=== PATIENT | male | born 1935 | race Caucasian/White ===

== ENCOUNTER 2016-02-20 19:16 | Inpatient (IN) | payer MEDICARE, OTHER ==
--- NOTE | 2016-02-20 19:47 | DIRPT ---
CLINICAL DATA: weakness EXAM: PORTABLE CHEST 1 VIEW COMPARISON: 09/08/15 FINDINGS: Bilateral lower lobe consolidation and pleural effusions, small on the right and small to moderate on the left. Mildly increased opacity right base, with moderately increased opacity at left lung base. IMPRESSION: Increased bilateral lower lobe consolidation, left worse than right, with increased bilateral effusions, again more so on the left. Electronically Signed By: Andrew Arevalo M.D. On: 02/20/2016 19:44
[2016-02-20 19:52] LABS: MPV 7.1 fL (7.4-10.4)
[2016-02-20 19:59] LABS: LEUKOCYTES/URINE NEG (NEGATIVE); NITRITE/URINE NEG (NEGATIVE); URINE OCCULT BLOOD NEG (NEG/TRACE); WBC/URINE 0-2 (0-2)
[2016-02-20 20:02] LABS: BLOOD UREA NITROGEN 33 MG/DL (9-20); CALC CORRECTED 10.1 MG/DL (8.4-10.2); CALCIUM 8.8 MG/DL (8.4-10.2); CALCULATED OSMOLALITY 284 MOs/Kg (270-290); CHLORIDE 105 mEq/L (98-107); GLUCOSE 261 MG/DL (70-99); SODIUM LEVEL 139 mEq/L (137-146); TOTAL PROTEIN 6.1 G/DL (6.3-8.2)
[2016-02-20 20:05] LABS: PARTIAL THROMB. TIME 28.9 SEC (22-35); PT-INR 1.3
[2016-02-20] MEDS ORDERED: PIPERACILLIN AND TAZOBACTAM 3.375 GM in D5W 100 ML IV ONE (21:19)
[2016-02-20] MEDS ORDERED: Levofloxacin 750 mg/150 ml D5W 750 MG/150 ML RTU IV ONE (21:19)
--- NOTE | 2016-02-20 22:19 | HISTPHYS ---
- Chief Complaint weakness, altered mental status - History of Present Illness PRIMARY CARE PROVIDER: Possibly Stephania Silva, but patient is not sure WEB SEARCH EVALUATOR: Dr. Pedro HPI: The patient is a 81 yo man with moderate to severe dementia, chronic bronchiectasis, who presents with weakness and altered mental status, along with knee pain. The patient is not clear why he is here, and there is no family present. History is obtained from the patient, the triage report, the emergency department staff, and the medical record. Apparently the patient's called EMS because her was confused and weak; she also reported his left knee was hurting more than normal and that he was not as active because of the pain. Regarding the weakness: Onset: he is not sure but he thinks it started today. Duration: intermittent. Location: generalized but more in the legs and symmetric. Radiation: none. Character: fatigue and also general weakness. Alleviated by: Nothing. Exacerbated by: Nothing. Associated Symptoms: At first he said he did not have any shortness of breath, but then later admitted he had a minimal amount of shortness of breath. Occasional cough. No wheezing. Confusion worse than his baseline (per report, but patient denies). No fever or chills. No chest pain or heart racing. He does not remember having any weight gain or leg swelling. Has left knee pain and swelling. Treatments: none at home except usual medications. Regarding left knee pain and swelling: Onset: he is not sure but he thinks it started today. Duration: intermittent. Location: left knee. Radiation: none. Character: moderate pain. Sharp. Alleviated by: Nothing. Exacerbated by: Nothing. Associated Symptoms: No redness or warmth. No fever or chills. Treatments: none at home except usual medications. - Medical History Cardiac History: Reports: Hypertension, Congestive Heart Failure (Mild. ECHO 2015: EF 55-60%. DIASTOLIC.) Respiratory History: Reports: Other (is actually BRONCHIECTASIS rather than COPD ) Musculoskeletal History: Reports: Arthritis Neurological History: Reports: Dementia (moderate to severe) Psychological History: Denies: Depression OTHER HISTORY: ECHOCARDIOGRAM, 07/09/2015: FINDINGS ------- Procedure:2D images, m-mode, color and spectral Doppler were obtained and reviewed. ECG rhythm:Sinus rhythm. Study quality:This was a technically adequate study. Left Ventricle:The left ventricular size is normal. Left ventricular wall thickness is upper normal. Overall left ventricular systolic function is normal with, an EF between 55 - 60 %. No regional wall motion abnormalities were noted. Their is impaired relaxation (Grade I diastolic dysfunction) Right Ventricle:The right ventricle is normal in size and function. Left Atrium:Left atrium is normal size by volume. Right Atrium:The right atrium is normal in size and function. Septum normal. Aortic Valve:The aortic valve is trileaflet, and appears structurally normal. No aortic stenosis or regurgitation. Mitral Valve:Normal appearing mitral valve. There is trace mitral regurgitation. Inflow suggests impaired relaxation. Tricuspid Valve:The tricuspid valve appears structurally normal. Mild tricuspid regurgitation present. Right ventricular systolic pressure is normal at < 35 mmHg. Pulmonic Valve:The pulmonic valve is normal. Trace/mild (physiologic) pulmonic regurgitation. Aorta:The aortic root, ascending aorta and aortic arch appear normal. IVC:Normal inferior vena cava with normal inspiratory collapse. Pericardium:There is no pericardial effusion. CONCLUSIONS 1. low normal left ventricular systolic function, with Grade I diastolic dysfunction (impaired relaxation) 2. normal right heart size/function, mild TR, normal pulmonary artery pressure suggested 3. no valvular heart disease or shunt.. EF between 55 - 60 % - Surgical History Reports: Tonsillectomy/Adnoidectomy (AND RIGHT EAR SURGERY) - Medictions/Allergies Allergies cefprozil [From Cefzil] Allergy (Verified 09/08/15 16:51) Nausea/Vomiting Current Medication List: Reviewed Home Medications Aspirin [Aspirin, Chewable] 81 mg PO DAILYWM #30 tablet 05/27/13 Metoprolol Tartrate [Lopressor] 50 mg PO BID #60 tablet 05/27/13 Esomeprazole Magnesium [Nexium] 20 mg PO DAILY 07/09/15 Loratadine [Claritin] 10 mg PO DAILY 07/09/15 Furosemide [Lasix] 40 mg PO DAILY #60 tab 07/21/15 Guaifenesin [Mucinex] 1,200 mg PO BID #20 tbmp.12hr 07/21/15 L.acidoph/B.animalis/B.longum [Florajen3 Capsule] 460 mg PO DAILY #60 capsule Magnesium Oxide [Mag-Ox] 400 mg PO BID #60 tablet 07/21/15 Mirtazapine [Remeron] 30 mg PO HS #60 tab 07/21/15 Potassium Chloride 40 meq PO DAILY #60 tablet.er 07/21/15 - Family History Reports: Stroke (Mother), Cardiac Disorders (Father: [place]), Other (Father: LUPUS) - Social History Travel Outside of [place] in the Last 3 Months?: No Lives: with Spouse Smoking Status: Former smoker (Smoked briefly in his teens, quit in his early 20s.) Social History: Denies: Alcohol Use, Substance Use Disorder - Review of Systems GENERAL: No Fever, chills, or diaphoresis. Positive for fatigue/malaise. HEENT: No ear pain or discharge. No nasal discharge or bleeding. No throat pain or swelling. No eye pain or eye redness. RESPIRATORY: No wheezing. Mild shortness of breath. Occasional cough. CARDIOVASCULAR: No chest pain or palpitations. GI: No abdominal pain, nausea, vomiting, diarrhea, constipation, or bloody stool. NEUROLOGICAL: No headache or focal weakness. Generalized weakness especially in the legs, symmetric. INTEGUMENT: no rashes, itching, or lesions. LYMPHATIC SYSTEM: no lymph node swelling or pain. MUSCULOSKELETAL: Left knee pain and swelling. Otherwise, no new pain or joint swelling. GENITOURINARY: No dysuria or hematuria. ENDOCRINE: No polyuria or polydipsia. HEME: No chronic anemia, bleeding, or easy bruising. - Physical Exam Vital Signs: Initial Vitals Temperature 98.4 F 02/20/16 19:25 Pulse Rate 88 02/20/16 19:25 Respiratory Rate 28 H 02/20/16 19:25 Blood Pressure 108/53 L 02/20/16 19:25 Pulse Oxygen Saturation 92 02/20/16 19:25 Vital Signs - 24 hr 02/20/16 19:25 Temperature 98.4 F Pulse Rate 88 Respiratory 28 H Rate Blood Pressure 108/53 L Pulse Oxygen 92 Saturation Weight: 68.5 kg Height: 5'5" BMI: 25.1 - Other Exam Other Exam Findings: GENERAL: Ill-appearing, well nourished, in acute distress. HEENT: Normocephalic, atraumatic; pupils equal and round. Nares patent, without discharge or bleeding. No oropharyngeal lesions or erythema. Mucous membranes are dry. NECK: is supple, no masses, trachea midline. RESPIRATORY: Clear to auscultation bilaterally. Chest wall movements are symmetric. No use of accessory muscles to breathe. Tachypnea, intermittent. Decreased breath sounds in bases bilaterally. No wheezing. No rhonchi. Slight rales. CARDIOVASCULAR: Normal S1, S2. Regular. No murmurs, rubs, or gallops. PMI non- displaced. Carotids: no carotid bruits. No bradycardia or tachycardia. DP pulses 2+ bilaterally. Minimal JVD. GI: soft, nontender, non-distended, normal active bowel sounds. No hepatosplenomegaly. INTEGUMENT: Clean, dry, and intact. No rashes. MUSCULOSKELETAL: Moving all extremities. No cyanosis. No clubbing. Edema: trace lower extremity edema bilaterally. L knee: tenderness on anterior, medial, and lateral aspect; joint swelling noted but no erythema. NEUROLOGICAL: Cranial nerves 2-12 grossly intact. Motor 4/5 throughout upper extremities and 4-/5 in lower extremities, symmetric. Reflexes: 2+ bilaterally. Babinski: toes downgoing bilaterally. Intact Finger to nose. Sensory grossly intact to light touch. Intact rapid alternating movements bilaterally. No pronator drift. PSYCHIATRIC: Oriented to person. Normal and appropriate affect. Confused. LYMPHATIC: No cervical lymphadenopathy. No supraclavicular lymphadenopathy. - Lab Results Laboratory Results - last 24 hr 02/20/16 02/20/16 02/20/16 19:44 19:44 19:44 WBC 15.4 H RBC 3.03 L Hgb 8.7 L Hct 27.2 L MCV 90 MCH 28.6 MCHC 31.9 L RDW 16.4 H Plt Count 222 MPV 7.1 L PT 13.1 H INR 1.3 APTT 28.9 Sodium 139 Potassium 4.9 Chloride 105 Carbon Dioxide 26 Anion Gap 13 BUN 33 H Creatinine 0.90 Estimated GFR (MDRD) > 60 Glucose 261 H Calculated Osmolality 284 Lactic Acid Calcium 8.8 Corrected Calcium 10.1 Magnesium 2.20 Total Bilirubin 0.7 AST 18 ALT 29 Alkaline Phosphatase 97 Troponin I < 0.01 Ggp-U-Iegvybtjroy Pept 3430 H Total Protein 6.1 L Albumin 2.7 L Urine Color Urine Clarity Urine pH Ur Specific [place] Urine Protein Urine Glucose (UA) Urine Ketones Urine Occult Blood Urine Nitrite Urine Bilirubin Urine Urobilinogen Ur Leukocyte Esterase Urine RBC Urine WBC Ur Epithelial Cells Urine Bacteria Hyaline Casts Urine Mucus 02/20/16 02/20/16 19:48 21:43 WBC RBC Hgb Hct MCV MCH MCHC RDW Plt Count MPV PT INR APTT Sodium Potassium Chloride Carbon Dioxide Anion Gap BUN Creatinine Estimated GFR (MDRD) Glucose Calculated Osmolality Lactic Acid 2.1 Calcium Corrected Calcium Magnesium Total Bilirubin AST ALT Alkaline Phosphatase Troponin I Vhe-M-Iwcmtwboleb Pept Total Protein Albumin Urine Color Dark yellow Urine Clarity Clear Urine pH 6.0 Ur Specific [place] 1.015 Urine Protein 2+ H Urine Glucose (UA) 1+ Urine Ketones Neg Urine Occult Blood Neg Urine Nitrite Neg Urine Bilirubin Neg Urine Urobilinogen 8 H Ur Leukocyte Esterase Neg Urine RBC 5-10 H Urine WBC 0-2 Ur Epithelial Cells Occ Urine Bacteria Few Hyaline Casts 0-2 Urine Mucus Occ - Diagnostic Findings DIAGNOSTIC DATA: EK bpm. Normal sinus rhythm. Nonspecific ST abnormality. Significant artifact. T-wave inversion in lead V2. Reviewed EKG personally. IMAGING: Chest x-ray, viewed personally: EXAM: PORTABLE CHEST 1 VIEW COMPARISON: 09/08/15 FINDINGS: Bilateral lower lobe consolidation and pleural effusions, small on the right and small to moderate on the left. Mildly increased opacity right base, with moderately increased opacity at left lung base. IMPRESSION: Increased bilateral lower lobe consolidation, left worse than right, with increased bilateral effusions, again more so on the left. - Assessment (1) Diastolic CHF, acute on chronic I50.33 - ACUTE ON CHRONIC DIASTOLIC (CONGESTIVE) HEART FAILURE Acute Present on Admission: Yes The patient has both acute and chronic heart failure. Heart failure type: diastolic. Echocardiogram results from past: 07/09/15: EF 55-60%, diastolic dysfunction. Plan: Admit to PCU with telemetry. CHF order set. Diet of 2 g Na. Daily weights with strict I/O's. No IVF unless patient is NPO. As tolerated, give beta alvarez, SAMIA inhibitor or ARB. Give Lasix IV scheduled. Replace potassium. Monitor heart rate, blood pressure, and respiratory status carefully. Provide support with oxygen as needed. Provide teaching regarding heart failure, 2g Na diet, daily weights, signs of acute heart failure. (2) Hypoxia R09.02 - HYPOXEMIA Acute Present on Admission: Yes Patient has dyspnea and is not improving. Patient's PO2 is low. Plan: Place patient on oxygen by nasal cannula and increase as needed. May need BiPAP if no improvement. Monitor oxygen saturation levels and keep O2 sats greater than 92%. (3) Bronchiectasis J47.9 - BRONCHIECTASIS, UNCOMPLICATED Acute Present on Admission: Yes Qualifiers: Bronchiectasis type: with acute lower respiratory infection Qualified Code( s): J47.0 - Bronchiectasis with acute lower respiratory infection Has chronic bronchiectasis, may have acute worsening. Plan: Cultures ordered. IV methylprednisolone. Trial of nebs. 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 (4) Bursitis, prepatellar, left M70.42 - PREPATELLAR BURSITIS, LEFT KNEE Acute Present on Admission: Yes No erythema of knee on admission. Fluid drained in the emergency department and sent for studies. Plan: Follow results. PRN pain medication. Further treatment depending on course. (5) Bacterial pneumonia J15.9 - UNSPECIFIED BACTERIAL PNEUMONIA Acute Present on Admission: Yes Chest x-ray suggestive of consolidation, which may be due to infection. Plan: Cultures ordered. Treat with IV Levaquin, due to allergy to a cephalosporin. (6) Pleural effusion J90 - PLEURAL EFFUSION, NOT ELSEWHERE CLASSIFIED Acute Likely due to diastolic CHF. Plan: IV Lasix. Monitor. (7) Dementia F03.90 - UNSPECIFIED DEMENTIA WITHOUT BEHAVIORAL DISTURBANCE Acute Present on Admission: Yes Chronic issue. May have increased confusion, which could be multifactorial. Unsure of his baseline. Plan: Follow up with primary care for treatment. Monitor neuro status. Treat acute diagnoses. Case Care Discussed with: Patient, Nursing Staff Total Time: 70 min
--- NOTE | 2016-02-20 22:28 | EDPRACDOC ---
- General Information Chief Complaint: Generalized Weakness Stated Complaint: WEAKNESS Time Seen by Provider: 02/20/16 19:18 Information Source: Patient Mode Of Arrival: Ambulance Home Medications: Home Medications Aspirin [Aspirin, Chewable] 81 mg PO DAILYWM #30 tablet 05/27/13 Metoprolol Tartrate [Lopressor] 50 mg PO BID #60 tablet 05/27/13 Esomeprazole Magnesium [Nexium] 20 mg PO DAILY 07/09/15 Loratadine [Claritin] 10 mg PO DAILY 07/09/15 Furosemide [Lasix] 40 mg PO DAILY #60 tab 07/21/15 Guaifenesin [Mucinex] 1,200 mg PO BID #20 tbmp.12hr 07/21/15 L.acidoph/B.animalis/B.longum [Florajen3 Capsule] 460 mg PO DAILY #60 capsule Magnesium Oxide [Mag-Ox] 400 mg PO BID #60 tablet 07/21/15 Mirtazapine [Remeron] 30 mg PO HS #60 tab 07/21/15 Potassium Chloride 40 meq PO DAILY #60 tablet.er 07/21/15 Allergies/Adverse Reactions: Allergies Allergy/AdvReac Type Severity Reaction Status Date / Time cefprozil [From Cefzil] Allergy Nausea/Vomi Verified 09/08/15 16:51 ting - 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 ALSO PAIN SWELLING LEFT KNEE, BUT HE STATES THIS COMES AND GOES FREQUENTLY. ED Past Medical History - History Reviewed Yes Nurses notes reviewed and agree except as marked - Patient Medical History Cardiac History: Reports: Hypertension Respiratory History: Reports: COPD, Pneumonia (With associated scarring of lungs from recent infections), Other (is actually BRONCHIECTASIS rather than COPD) GI/ History: Reports: Urinary Tract Infection (As stated above with polyuria and hesitancy specifically denies any burning) Musculoskeletal History: Reports: Arthritis, Rheumatoid Arthritis Psychological History: Denies: Depression, Alcoholism, Substance Use Disorder Systemic History: Denies: Cancer Surgical History: Reports: Tonsillectomy/Adnoidectomy - Family Medical History Reports: Stroke. Denies: Hypertension, Diabetes, Cancer, Cardiac Disorders - Social Medical History Smoking Status: Never smoker Social History: Denies: Alcohol Use, Substance Use Disorder ETOH: None Substance Abuse: None Lives With: Family Lives In: Home EDM Review of Systems - Review of Systems ROS Negative Except as Marked: Yes All systems reviewed and were negative except as marked - Physical Exam Constitutional: No apparent distress, Alert (Awake), Cachectic Oriented to: Time, Person, Place Last recorded Vital Signs: Last Vital Signs Temp 98.4 F 02/20/16 19:25 Pulse 78 02/20/16 22:05 Resp 22 02/20/16 22:05 BP 96/52 L 02/20/16 22:05 Pulse Ox 94 02/20/16 22:05 Oxygen Pulse Oxygen Saturation 94 O2 Device Room Air Oxygen Flow Rate Fraction of Inspired Oxygen ( FIO2) - HEENT Head: Normal ( normocephalic) Eye Exam: Normal (PERRL, EOMI, Sclera white) Oropharynx: Normal (Pharynx:Moist without exudate,Gums-no swelling) Tympanic Membrane: Normal ENT EAC: Normal TMJ: Normal Nose: No Symptoms Reported (septum midline) Neck: Normal (FROM, trachea at midline) - Respiratory/Cardiovascular Respiratory: Diminished, Rales (FEW). negative: Tachypnea Cardiovascular: Normal (RRR without murmur, gallop or rub) - GI Auscultation: Normal (NABS) Palpation: Normal (Soft,No rebound or guarding, non distended) Tenderness: Non tender Aparicio's Sign: Negative - Musculoskeletal Back: Normal (Non-Tender) Extremities: Normal (Normal tone, Pulses 2+ No cyanosis or edema, FROM), Other ( LEFT KNEE PRE-PATELLA EFFUSION, NO ERYTHEMA WARMTH OR INDURATION. NO TTP. KNEE FROM.) - Integumentary Skin: Normal, Warm, Dry Lymphatics: Normal (no adenopathy) - Neurologic Memory Impaired: Normal Motor Function: Normal (Normal tone, Pulses 2+ No cyanosis or edema, FROM) Cranial Nerve: Normal (CN II-X11 intact sensation, strength 5/5) Cerebellar: Normal Mood Description: Normal Perception: Normal NIH Stroke Scale Re-evaluation 1 Level of Consciousness: Alert LOC- Question: Answers Both Correctly LOC Commands: Both Task Correctly Best Gaze: Normal Visual: No Visual Loss Facial Palsy: Normal Movement Motor Arm LEFT: No Drift Motor Arm RIGHT: No Drift Motor Leg LEFT: No Drift Motor Leg RIGHT: No Drift Limb Ataxia: Absent Sensory: Normal Best Language: No Aphasia Dysarthria: Normal Extinction and Inattention: No Abnormality (Neglect) Score: 0out of42 ED Procedures - Arthrocentesis Informed of risks, benefits and alternatives described: Yes Informed Consent Signed: Verbal Indication: Diagnostic Evaluation Prep: Chlorhexadine Prep Equipment used during procedure: Sterile Gloves Needle/Catheter was inserted into: Knee (LEFT PREPATELLA BURSA - MEDIAL APPROACH ) Removed: Cloudy fluid, Yellow fluid Amount (ml): 20 Joint Injected with: Nothing 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 - Results 02/20/16 19:44 02/20/16 19:44 WBC 15.4 xk/uL (3.8-10.8) H 02/20/16 19:44 RBC 3.03 xM/uL (4.70-6.10) L 02/20/16 19:44 Hgb 8.7 g/dL (14.0-18.0) L 02/20/16 19:44 Hct 27.2 % (42-52) L 02/20/16 19:44 MCV 90 fL (80-94) 02/20/16 19:44 MCH 28.6 pg (27-32) 02/20/16 19:44 MCHC 31.9 g/dl (33-36) L 02/20/16 19:44 RDW 16.4 % (11.5-14.5) H 02/20/16 19:44 Plt Count 222 xk/uL (130-400) 02/20/16 19:44 MPV 7.1 fL (7.4-10.4) L 02/20/16 19:44 PT 13.1 SEC (9.2-11.2) H 02/20/16 19:44 INR 1.3 02/20/16 19:44 APTT 28.9 SEC (22-35) 02/20/16 19:44 Sodium 139 mEq/L (137-146) 02/20/16 19:44 Potassium 4.9 mEq/L (3.5-5.1) 02/20/16 19:44 Chloride 105 mEq/L (98-107) 02/20/16 19:44 Carbon Dioxide 26 mMOL/L (22-33) 02/20/16 19:44 Anion Gap 13 mEq/L (8-16) 02/20/16 19:44 BUN 33 MG/DL (9-20) H 02/20/16 19:44 Creatinine 0.90 MG/DL (0.66-1.25) 02/20/16 19:44 Estimated GFR (MDRD) > 60 mL/min (>=60) 02/20/16 19:44 Glucose 261 MG/DL (70-99) H 02/20/16 19:44 Calculated Osmolality 284 MOs/Kg (270-290) 02/20/16 19:44 Lactic Acid 2.1 mEq/L (0.7-2.1) 02/20/16 21:43 Calcium 8.8 MG/DL (8.4-10.2) 02/20/16 19:44 Corrected Calcium 10.1 MG/DL (8.4-10.2) 02/20/16 19:44 Magnesium 2.20 MG/DL (1.6-2.3) 02/20/16 19:44 Total Bilirubin 0.7 MG/DL (0.2-1.3) 02/20/16 19:44 AST 18 IU/L (17-59) 02/20/16 19:44 ALT 29 IU/L (21-72) 02/20/16 19:44 Alkaline Phosphatase 97 IU/L (50-160) 02/20/16 19:44 Troponin I < 0.01 ng/mL (<.04) 02/20/16 19:44 Flz-W-Wybwxpyhryi Pept 3430 pg/mL (0-1800) H 02/20/16 19:44 Total Protein 6.1 G/DL (6.3-8.2) L 02/20/16 19:44 Albumin 2.7 G/DL (3.5-5.0) L 02/20/16 19:44 Urine Color Dark yellow 02/20/16 19:48 Urine Clarity Clear 02/20/16 19:48 Urine pH 6.0 (5.0-8.0) 02/20/16 19:48 Ur Specific [place] 1.015 (1.003-1.035) 02/20/16 19:48 Urine Protein 2+ (NEG/TRACE) H 02/20/16 19:48 Urine Glucose (UA) 1+ (NEGATIVE) 02/20/16 19:48 Urine Ketones Neg (NEGATIVE) 02/20/16 19:48 Urine Occult Blood Neg (NEG/TRACE) 02/20/16 19:48 Urine Nitrite Neg (NEGATIVE) 02/20/16 19:48 Urine Bilirubin Neg (NEGATIVE) 02/20/16 19:48 Urine Urobilinogen 8 MG/DL (0-1) H 02/20/16 19:48 Ur Leukocyte Esterase Neg (NEGATIVE) 02/20/16 19:48 Urine RBC 5-10 (0-2) H 02/20/16 19:48 Urine WBC 0-2 (0-2) 02/20/16 19:48 Ur Epithelial Cells Occ 02/20/16 19:48 Urine Bacteria Few (NEG/FEW) 02/20/16 19:48 Hyaline Casts 0-2 (0-2) 02/20/16 19:48 Urine Mucus Occ (NEG/OCC) 02/20/16 19:48 Lab Results 02/20/16 02/20/16 02/20/16 21:43 19:48 19:44 WBC RBC Hgb Hct MCV MCH MCHC RDW Plt Count MPV PT 13.1 H INR 1.3 APTT 28.9 Sodium Potassium Chloride Carbon Dioxide Anion Gap BUN Creatinine Estimated GFR (MDRD) Glucose Calculated Osmolality Lactic Acid 2.1 Calcium Corrected Calcium Magnesium Total Bilirubin AST ALT Alkaline Phosphatase Troponin I Jnc-C-Zqorgrjqrgl Pept Total Protein Albumin Urine Color Dark yellow Urine Clarity Clear Urine pH 6.0 Ur Specific [place] 1.015 Urine Protein 2+ H Urine Glucose (UA) 1+ Urine Ketones Neg Urine Occult Blood Neg Urine Nitrite Neg Urine Bilirubin Neg Urine Urobilinogen 8 H Ur Leukocyte Esterase Neg Urine RBC 5-10 H Urine WBC 0-2 Ur Epithelial Cells Occ Urine Bacteria Few Hyaline Casts 0-2 Urine Mucus Occ 02/20/16 02/20/16 19:44 19:44 WBC 15.4 H RBC 3.03 L Hgb 8.7 L Hct 27.2 L MCV 90 MCH 28.6 MCHC 31.9 L RDW 16.4 H Plt Count 222 MPV 7.1 L PT INR APTT Sodium 139 Potassium 4.9 Chloride 105 Carbon Dioxide 26 Anion Gap 13 BUN 33 H Creatinine 0.90 Estimated GFR (MDRD) > 60 Glucose 261 H Calculated Osmolality 284 Lactic Acid Calcium 8.8 Corrected Calcium 10.1 Magnesium 2.20 Total Bilirubin 0.7 AST 18 ALT 29 Alkaline Phosphatase 97 Troponin I < 0.01 Zwn-A-Wsmorfibcxf Pept 3430 H Total Protein 6.1 L Albumin 2.7 L Urine Color Urine Clarity Urine pH Ur Specific [place] Urine Protein Urine Glucose (UA) Urine Ketones Urine Occult Blood Urine Nitrite Urine Bilirubin Urine Urobilinogen Ur Leukocyte Esterase Urine RBC Urine WBC Ur Epithelial Cells Urine Bacteria Hyaline Casts Urine Mucus - EKG EKG #1 EKG Time: 19:26 -: Yes EKG interpreted by me Rate: bpm: 86 [place]: Normal Rhythm: NSR Block: None Hypertrophy: None ST: Nonsp - Departure Disposition: Admit IP To This Hospital Condition: Stable Final Diagnosis: Community acquired bacterial pneumonia, Bursitis, prepatellar, left Bronchiectasis Qualifiers: Bronchiectasis type: with acute lower respiratory infection Qualified Code(s): J47.0 - Bronchiectasis with acute lower respiratory infection Instructions: Weakness (General) Education/Counseling Given To: Patient, Family Member Education/Counseling Given Regarding: Diagnosis, Treatment, Prognosis Referrals: None,No Provider [Primary Care Provider] - One Week Decision to Admit Time: 21:35 Decision to admit date: 02/20/16 Decision to admit: from ED - Physician Consulted Hospitalist Time Called: 21:35 Provider Called: Mark Vanessa Time Manufacturing Director Returned Call: 21:35
[2016-02-20] MEDS ORDERED: LIDOCAINE 2% VISCOUS ORAL 15 ML PO ONE (22:30)
[2016-02-20 22:32] LABS: SEG NEUTROPHIL 82 % (45-76); TOTAL CELL COUNT 100
[2016-02-20 23:00] LABS: ALLEN'S TEST PASS; BEb 3.1 (+/- 2); TCO2 28.2 MMOL/L (23-27)
[2016-02-20 23:01] LABS: ABG Draw Site Right Radial
[2016-02-20] MEDS ORDERED: Pharmacy Order Set Alert SCH (23:45)
[2016-02-20] MEDS ORDERED: MORPHINE 2 MG/ML INJECTION IV PRN (23:52)
[2016-02-20] MEDS ORDERED: NITROGLYCERINE 0.4 MG TAB SL PRN (23:52)
[2016-02-20 23:53] LABS: AUTO TNC/BODY FLUID 274009 /cu mm
[2016-02-20 23:54] LABS: BACKGROUND COUNT 0 (<20); BODY FLUID TYPE SYNOVIAL
[2016-02-20 23:55] LABS: RBC/BODY FLUID SM AMT /cu mm
[2016-02-20] MEDS ORDERED: ALBUTEROL 0.083% 3 ML NEB NEB PRN (23:55)
[2016-02-21] MEDS ORDERED: Docusate Sodium 100 MG CAP PO PRN (00:09)
[2016-02-21] MEDS ORDERED: TEMAZEPAM 15 MG CAP PO PRN (00:09)
[2016-02-21] MEDS ORDERED: PROMETHAZINE 25 MG/ML VIAL IV PRN (00:09)
[2016-02-21] MEDS ORDERED: ONDANSETRON HCL 4 MG/2 ML VIAL IV PRN (00:09)
[2016-02-21] MEDS ORDERED: SIMETHICONE 80 MG TAB PO PRN (00:09)
[2016-02-21] MEDS ORDERED: GUAIFEN 100 MG-DEXTROMETH 10 MG PER 5 ML PO PRN (00:09)
[2016-02-21] MEDS ORDERED: BISACODYL 5 MG TAB PO PRN (00:09)
[2016-02-21] MEDS ORDERED: BENZONATATE 100 MG PERLES PO PRN (00:09)
[2016-02-21] MEDS ORDERED: SENNA CONCENTRATE TAB PO PRN (00:09)
[2016-02-21] MEDS: FUROSEMIDE 40 MG/4 ML VIAL IV SCH ×3 (00:26→16:43)
[2016-02-21] MEDS: METHYLPREDNISOLONE 125 MG/2 ML VIAL IV SCH ×3 (00:51→16:43)
[2016-02-21] MEDS: ENOXAPARIN 40 MG/0.4 ML PFS SQ SCH ×2 (00:51→16:43)
[2016-02-21 01:00] LABS: BODY FLUID LYMPHOCYTE 9 %; BODY FLUID MONOCYTE 4 %; BODY FLUID NEUTROPHIL 87 %
[2016-02-21] MEDS ORDERED: Vaccine Screening Complete SCH (01:00)
[2016-02-21] MEDS: METOPROLOL TARTRATE 50 MG TAB PO SCH ×3 (01:32→21:07)
[2016-02-21] MEDS ORDERED: TRAMADOL HCL 50 MG TAB PO PRN (01:47)
[2016-02-21] MEDS: Albuterol/Ipratropium Neb 3 ML NEB NEB SCH ×4 (02:09→20:25)
[2016-02-21 03:57] LABS: MPV 7.4 fL (7.4-10.4)
[2016-02-21 04:12] LABS: BLOOD UREA NITROGEN 34 MG/DL (9-20); CALCIUM 8.8 MG/DL (8.4-10.2); CALCULATED OSMOLALITY 277 MOs/Kg (270-290); CHLORIDE 104 mEq/L (98-107); GLUCOSE 119 MG/DL (70-99); LDL (calc.) 37.8 MG/DL (<100); SODIUM LEVEL 139 mEq/L (137-146); VLDL (calc.) 18.2 MG/DL (5-40)
[2016-02-21] MEDS ORDERED: HALOPERIDOL 5 MG/ML VIAL IM ONE (05:15)
[2016-02-21] MEDS: LISINOPRIL 2.5 MG TAB PO SCH (08:13)
[2016-02-21] MEDS: ATORVASTATIN 40 MG TAB PO SCH (08:14)
[2016-02-21] MEDS: ASPIRIN (CHEWABLE) 81 MG TAB PO SCH (08:14)
[2016-02-21] MEDS ORDERED: DILTIAZEM 25 MG/5 ML VIAL IV ONE ×2 (09:15→09:19)
[2016-02-21] MEDS ORDERED: DIAZEPAM 10 MG/2 ML TUBEX ONE (09:15)
[2016-02-21] MEDS: Diltiazem HCl 100 MG in D5W 100 ML IV SCH ×2 (10:15→18:23)
--- NOTE | 2016-02-21 11:36 | CAPUEKG ---
[place], [place] Test Date: 2016-02-21 Pat Name: NOBLE MO Department: Room: 452 Gender: Male Senior Marketing Manager: DELMA AGARWALB: Requested By: Order Number: Reading MD: Manolo Diane Measurements Intervals [place] Rate: 129 P: CA: QRS: 14 QRSD: 84 T: 46 QT: 302 QTc: 442 Interpretive Statements Atrial fibrillation with rapid ventricular response No S-T shift during tachycardia Since feb 19, afib is new Abnormal ECG Electronically Signed On 02-21-16 11:35:48 EST by Manolo Diane <[email or web address] [id number]
[2016-02-21] MEDS: [UNRECOGNIZED DRUG - OTHER] PO SCH (14:20)
--- NOTE | 2016-02-21 17:00 | GENMEDPROG ---
Subjective Note: Patient is eating dinner. He has no complaints of chest pain or shortness of breath. He really does not feel his heart going fast. He does clearly have some dementia.he does not know where he is or why he is here. Current Medication List: Reviewed Currently: Reports: Ambulating (states he normally walks at home.). Denies: Cough, Wheezing, MCDON[place]D, SOB, Nausea and Vomiting, Reflux Sx, Abdominal Pain, Fever /Chills DVT Prophylaxis: Yes - Physical Examination Vital Signs and I&O: Last Vital Signs Temp 98.2 F 02/21/16 11:35 Pulse 123 H 02/21/16 16:47 Resp 19 02/21/16 15:35 BP 128/63 02/21/16 16:47 Pulse Ox 95 02/21/16 15:35 Oxygen Pulse Oxygen Saturation 95 O2 Device Room Air Oxygen Flow Rate Fraction of Inspired Oxygen ( FIO2) Intake & Output 02/18/16 02/19/16 02/20/16 02/21/16 23:59 23:59 23:59 23:59 Intake Total 250 190 Balance 250 190 Patient's weight 68.538 kg 58.922 kg General: Alert, Cooperative, Weakness, Fatigue. negative: Oriented x3 HEENT: Normal, Anicteric Sclera Neck: Non-tender, No Masses palpable Lymphatics: negative: Cervical Adenopathy, Supraclavicular Adenopathy Respiratory: Diminished, Rales (scattered crackles). negative: Tachypnea Cardiovascular: Irregular (afib with rates into the 120-150 range.) GI: Normal bowel sounds, Non tender, No hepatospenomegaly Extremities/Musculoskeletal: Swelling (left prepatella bursa), FROM (UE with FAROM.) Skin: Warm,Dry and Intact Neurological: Normal speech Psych/Mental Status: Confused Lab/DI/Studies Reviewed: Laboratory Tests 02/21/16 02/21/16 02/21/16 00:29 03:44 03:44 WBC 13.4 H RBC 3.11 L Hgb 8.8 L Hct 27.7 L MCV 89 Sodium 139 Potassium 4.3 Chloride 104 Carbon Dioxide 27 Anion Gap 12 BUN 34 H Creatinine 0.90 Estimated GFR (MDRD) > 60 Glucose 119 H Lactic Acid Troponin I 0.02 02/21/16 03:44 WBC RBC Hgb Hct MCV Sodium Potassium Chloride Carbon Dioxide Anion Gap BUN Creatinine Estimated GFR (MDRD) Glucose Lactic Acid 1.9 Troponin I - Assessment (1) Diastolic CHF, acute on chronic Acute I50.33 - ACUTE ON CHRONIC DIASTOLIC (CONGESTIVE) HEART FAILURE Comment /Plan: evidenced based order set used. Is on beta alvarez. since last echo is from 06/2015, will not repeat. (2) Hypoxia Acute R09.02 - HYPOXEMIA Comment/Plan: Is on supplemental oxygen. will titrate to keep sats>92. if confusion is related to hypoxia, it should clear . (3) Bronchiectasis Acute J47.9 - BRONCHIECTASIS, UNCOMPLICATED Qualifiers: Bronchiectasis type: with acute lower respiratory infection Qualified Code( s): J47.0 - Bronchiectasis with acute lower respiratory infection Comment/Plan: Is on steroids. Sputum cultures ordered. On nebs but may be limited by new onset a fib. (4) Bursitis, prepatellar, left Inactive M70.42 - PREPATELLAR BURSITIS, LEFT KNEE Comment/Plan: Joint aspirated in ED. Await cultures. May be traumatic effusion but there is no history. (5) Bacterial pneumonia Acute J15.9 - UNSPECIFIED BACTERIAL PNEUMONIA Comment/Plan: Is on IV levaquin. Follow CXR and clinical course. (6) New onset atrial fibrillation Acute I48.91 - UNSPECIFIED ATRIAL FIBRILLATION Comment/Plan: Has not responded to IV cardizem. Will try IV beta alvarez since he is on one as outpatient. Concern for anticoagulation with his dementia but will add lovenox for now. I do not see a fib as a diagnosis in his old records. TSH ordered. Enzymes neg. (7) Pleural effusion Acute J90 - PLEURAL EFFUSION, NOT ELSEWHERE CLASSIFIED Comment/Plan: IV lasix. Follow CXR and clinical status. May worsen with PNA and a fib. (8) Dementia Acute F03.90 - UNSPECIFIED DEMENTIA WITHOUT BEHAVIORAL DISTURBANCE Qualifiers: Dementia type: unspecified type Comment/Plan: Was agitated last night but is pleasant late in day today. Unknown baseline.There may be new delirium superimposed due to multiple medical issues. Case Care Discussed with: Patient, Nursing Staff Total Time: 35 min Critical Care: No Couseling Time (>50% in counseling/coordination): No Code: 93198 (12+)
[2016-02-21] MEDS ORDERED: METOPROLOL 5 MG/5 ML SDV IV ONE ×2 (17:09→18:00)
[2016-02-21] MEDS ORDERED: ENOXAPARIN 30 MG/0.3 ML PFS SQ ONE (20:00)
[2016-02-21] MEDS ORDERED: Enoxaparin Treatment Dose per Pharmacy SQ SCH (20:00)
[2016-02-21 20:32] LABS: CPK TOTAL WITH POSSIBLE MB < 20 IU/L (55-170)
[2016-02-21 21:04] LABS: hTSH 1.15 uIU/mL (0.5-4.67)
[2016-02-21] MEDS: METOPROLOL 5 MG/5 ML SDV IV PRN (21:38)
[2016-02-21] MEDS ORDERED: Levofloxacin 750 mg/150 ml D5W 750 MG/150 ML RTU IV SCH (22:00)
[2016-02-21 23:09] LABS: CPK TOTAL WITH POSSIBLE MB < 20 IU/L (55-170)
[2016-02-22] MEDS: FUROSEMIDE 40 MG/4 ML VIAL IV SCH ×3 (00:26→15:35)
[2016-02-22] MEDS: METHYLPREDNISOLONE 125 MG/2 ML VIAL IV SCH ×2 (00:26→07:36)
[2016-02-22] MEDS: Albuterol/Ipratropium Neb 3 ML NEB NEB SCH ×4 (01:17→20:59)
[2016-02-22] MEDS: Diltiazem HCl 100 MG in D5W 100 ML IV SCH (04:41)
[2016-02-22] MEDS: ENOXAPARIN 60 MG/0.6 ML PFS SQ SCH ×2 (06:09→18:22)
[2016-02-22] MEDS: METOPROLOL TARTRATE 50 MG TAB PO SCH ×2 (07:35→21:30)
[2016-02-22] MEDS: ATORVASTATIN 40 MG TAB PO SCH (07:36)
[2016-02-22] MEDS: ASPIRIN (CHEWABLE) 81 MG TAB PO SCH (07:36)
[2016-02-22] MEDS: [UNRECOGNIZED DRUG - OTHER] PO SCH ×2 (07:37→13:35)
[2016-02-22] MEDS: LISINOPRIL 2.5 MG TAB PO SCH (07:37)
--- NOTE | 2016-02-22 11:03 | PCM.CARDCO ---
Consultation Date: 02/22/16 Requesting Physician: Mercy Disla Rn Cardiovascular: Akash Villarreal Consult Reason: Dysrhythmia - History of Present Illness Patient is previously unknown to me. I have not taken care of this gentleman in the past with the best of my memory. He has history of bronchiectasis. I was called to evaluate him for new onset atrial fibrillation. At the time of my evaluation is confused. He is in no distress. He knows me from taking care of his . He has always been accompanying his to her office visits that he has met me on multiple occasions. The today he does not remember me. He is in no distress. He Chief Complaint: weakness, altered mental status - Past Medical and Surgical History Cardiac History: Reports: Hypertension, Congestive Heart Failure (Mild. ECHO 2015: EF 55-60%. DIASTOLIC.) Respiratory History: Reports: Other (is actually BRONCHIECTASIS rather than COPD ) Musculoskeletal History: Reports: Arthritis Psychological History: Denies: Depression, Alcoholism, Substance Use Disorder Neurological History: Reports: Dementia (moderate to severe) Past Surgical History: Reports: Tonsillectomy/Adnoidectomy (AND RIGHT EAR SURGERY) Allergies cefprozil [From Cefzil] Allergy (Verified 09/08/15 16:51) Nausea/Vomiting Home Medications Aspirin [Aspirin, Chewable] 81 mg PO DAILYWM #30 tablet 05/27/13 Metoprolol Tartrate [Lopressor] 50 mg PO BID #60 tablet 05/27/13 Esomeprazole Magnesium [Nexium] 20 mg PO DAILY 07/09/15 Loratadine [Claritin] 10 mg PO DAILY 07/09/15 Furosemide [Lasix] 40 mg PO DAILY #60 tab 07/21/15 Guaifenesin [Mucinex] 1,200 mg PO BID #20 tbmp.12hr 07/21/15 L.acidoph/B.animalis/B.longum [Florajen3 Capsule] 460 mg PO DAILY #60 capsule Magnesium Oxide [Mag-Ox] 400 mg PO BID #60 tablet 07/21/15 Mirtazapine [Remeron] 30 mg PO HS #60 tab 07/21/15 Potassium Chloride 40 meq PO DAILY #60 tablet.er 07/21/15 - Social History Travel Outside of [place] in the Last 3 Months?: No Lives: with Spouse Smoking Status: Former smoker (Smoked briefly in his teens, quit in his early 20s.) Social History: Denies: Alcohol Use, Substance Use Disorder - Family History Reports: Stroke (Mother), Cardiac Disorders (Father: [place]), Other (Father: LUPUS) - Physical Exam Constitutional: No apparent distress, Alert (Awake), Cache[place] Oriented to: Time, Person, Place Exam: Last Vital Signs Temp 97.9 F 02/22/16 07:25 Pulse 93 02/22/16 07:25 Resp 20 02/22/16 07:25 BP 114/72 02/22/16 07:25 Pulse Ox 93 02/22/16 08:56 Intake & Output 02/21/16 02/22/16 02/22/16 23:59 07:59 15:59 Intake Total 82 60 Balance 82 60 Patient's weight 58.105 kg - HEENT Head: Normal ( normocephalic) Eye: Normal (PERRL, EOMI, Sclera white) Oropharynx: Normal (Pharynx:Moist without exudate,Gums-no swelling) Tympanic Membrane: Normal ENT EAC: Normal TMJ: Normal Nose: No Symptoms Reported (septum midline) - Respiratory/Cardiovascular Respiratory: Diminished, Rales (FEW). negative: Tachypnea Cardiovascular: Other (Heart sounds irregular 2/6 systolic murmur at the apex.) - GI Auscultation: Normal (NABS) Palpation: Normal (Soft,No rebound or guarding, non distended) Tenderness: Non tender - Musculoskeletal Back: Normal (Non-Tender) Extremities: Normal (Normal tone, Pulses 2+ No cyanosis or edema, FROM), Other ( LEFT KNEE PRE-PATELLA EFFUSION, NO ERYTHEMA WARMTH OR INDURATION. NO TTP. KNEE FROM.) - Integumentary Lymphatics: Normal (no adenopathy) - Neurologic Memory Impaired: Normal Cerebellar: Normal Mood Description: Normal Perception: Normal - Other Exam Other Exam Findings: Abdomen nontender. No cyanosis clubbing or pedal edema on the extremity evaluation. - Assessment/Plan (1) New onset atrial fibrillation I48.91 - UNSPECIFIED ATRIAL FIBRILLATION Acute Comment: It appears that the patient came into the hospital in sinus rhythm. Currently is in atrial fibrillation and his rates are fairly well controlled. I will obtain echocardiogram and TSH. In general I think the patient's condition is pretty advanced and his significant comorbidities. Rate control would be the target here at this time. Patient is significantly anemic and this needs an evaluation if it has not done already. Is not a candidate for anticoagulation because of disorientation and the fact that he has been diagnosed now with sepsis of the knee and also bacteremia. Have discussed this at length with the hospitalist and we concur. (2) Sepsis A41.9 - SEPSIS, UNSPECIFIED ORGANISM Acute sepsis due to unspecified organism A41.9 - Sepsis, unspecified organism Comment: Is being managed at rest aggressively by the hospitalist. The plan to get orthopedic surgery and not. (3) Septic joint of left knee joint M00.9 - PYOGENIC ARTHRITIS, UNSPECIFIED Acute Case Care Discussed with: Consultants
[2016-02-22] MEDS ORDERED: LORAZEPAM 2 MG/ML VIAL IV PRN (11:25)
--- NOTE | 2016-02-22 11:39 | PCM.ORTHCO ---
Consultation Date: 02/22/16 Requesting Physician: Mercy Disla Boat Joiner Helper: Vernon Gracia Reason for Consult: Other (Left knee septic arthritis) - History of Present Illness Patient is a 81 years old female with history of moderate to severe dementia chronic bronchiectasis who presented with complaints of altered mental status as well as left knee pain. Patient has been admitted to the hospitalist service. He described pain off and on and his left knee. Patient had left knee aspirated on 02/20/2016. This showed evidence of Streptococcus pneumoniae in the cultures. The Orthopedic Service has been consulted for left knee septic arthritis. Patient is a poor historian and most of the information is from the hospitalist history and physical consultation. Patient was ambulatory before this episode of left knee pain. Chief Complaint: weakness, altered mental status - Past Medical and Surgical History Cardiac History: Reports: Hypertension, Congestive Heart Failure (Mild. ECHO 2015: EF 55-60%. DIASTOLIC.) Respiratory History: Reports: Other (is actually BRONCHIECTASIS rather than COPD ) Musculoskeletal History: Reports: Arthritis Psychological History: Denies: Depression, Alcoholism, Substance Use Disorder Neurological History: Reports: Dementia (moderate to severe) Past Surgical History: Reports: Tonsillectomy/Adnoidectomy (AND RIGHT EAR SURGERY) Allergies cefprozil [From Cefzil] Allergy (Verified 09/08/15 16:51) Nausea/Vomiting Home Medications Aspirin [Aspirin, Chewable] 81 mg PO DAILYWM #30 tablet 05/27/13 Metoprolol Tartrate [Lopressor] 50 mg PO BID #60 tablet 05/27/13 Esomeprazole Magnesium [Nexium] 20 mg PO DAILY 07/09/15 Loratadine [Claritin] 10 mg PO DAILY 07/09/15 Furosemide [Lasix] 40 mg PO DAILY #60 tab 07/21/15 Guaifenesin [Mucinex] 1,200 mg PO BID #20 tbmp.12hr 07/21/15 L.acidoph/B.animalis/B.longum [Florajen3 Capsule] 460 mg PO DAILY #60 capsule Magnesium Oxide [Mag-Ox] 400 mg PO BID #60 tablet 07/21/15 Mirtazapine [Remeron] 30 mg PO HS #60 tab 07/21/15 Potassium Chloride 40 meq PO DAILY #60 tablet.er 07/21/15 - Social History Travel Outside of [place] in the Last 3 Months?: No Lives: with Spouse Smoking Status: Former smoker (Smoked briefly in his teens, quit in his early 20s.) Social History: Denies: Alcohol Use, Substance Use Disorder - Family History Reports: Stroke (Mother), Cardiac Disorders (Father: [place]), Other (Father: LUPUS) - Physical Exam Vital Signs: Initial Vitals Temperature 98.4 F 02/20/16 19:25 Pulse Rate 88 02/20/16 19:25 Respiratory Rate 28 H 02/20/16 19:25 Blood Pressure 108/53 L 02/20/16 19:25 Pulse Oxygen Saturation 92 02/20/16 19:25 Constitutional: No apparent distress, Other (Patient is currently confused and is not oriented to time and space.) - HEENT Head: Normal (normocephalic, atraumatic.), Other (No cervical lymphadenopathy. No supraclavicular lymphadenopathy. Neck: No palpable mass, supple , trachea midline.) Eye: Normal Respiratory: Normal - CTA (Clear to auscultation bilaterally. No wheezing, rales , rhonchi. Chest wall movements are symmetric. No use of accessory muscles to breathe.) - Musculoskeletal Extremities: Pedal Pulse (Dorsalis pedis and posterior tibial pulses are palpable.), Other (Left knee exam positive effusion. There is no local erythema. Left knee range of motion shows positive crepitus as well as pain with range of motion. His current range is from 0-90 degrees of flexion. Knee is otherwise stable to medial lateral as well as antral posterior stress.) - Neurologic Mood Description: Other ( patient shows spontaneous movements of his both lower extremities. There are no upper motor neuron signs.) - Lab Results Cultures done on the left knee aspirate grew Streptococcus pneumoniae. Plan: 81 years old male with left knee pain and effusion with cultures positive for Streptococcus pneumoniae. Patient will be scheduled for arthroscopic debridement by Dr. Dannie Guadarrama on 02/23/2016. . Patient will be started on IV antibiotics postoperatively. This plan was communicated with Dr. Disla
--- NOTE | 2016-02-22 12:30 | CAPUECHO ---
INDICATION: AFIB HEIGHT: 165.1 cm (5 ft 5.0 in) WEIGHT: 58.5 kg (129.0 lbs) BP: 118/62 BSA: 1.930347 m MEASUREMENTS 2D RVIDd: 3.1 cm EF Biplane: 35.15 % LAESV MOD A4C: 43.6 ml LAESV MOD A2C: 91.0 ml LAESV Index (A-L): 47.59 ml/m M-MODE IVSd: 1.1 cm LVIDd: 5.0 cm LVPWd: 1.1 cm LVIDs: 3.4 cm EF(Teich): 58 % Ao Diam: 3.2 cm LA Diam: 4.2 cm DOPPLER MV E Kai: 1.02 m/s MV A Kai: 0.00 m/s MV PHT: 47.69 ms MVA By PHT: 4.61 cm LVOT Vmax: 0.75 m/s AV Vmax: 0.97 m/s TR Vmax: 1.99 m/s TR maxP mmHg RVSP: 25.81 mmHg FINDINGS ------- Procedure:2D images, m-mode, color and spectral Doppler were obtained and reviewed. ECG rhythm:Atrial fibrillation. Study quality:This was a technically adequate study. Left Ventricle:The left ventricular size is normal. There is borderline concentric left ventricula r hypertrophy. Overall left ventricular systolic function is low-normal with, an EF between 50 - 5 5 %. The diastolic filling pattern indicates impaired relaxation. Right Ventricle:The right ventricle is normal in size and function. Left Atrium:The left atrium is mildly dilated. Right Atrium:The right atrium is normal in size and function. Aortic Valve:The aortic valve is trileaflet and appears structurally normal. There is mild aortic valve sclerosis. Mitral Valve:The mitral valve leaflets are mildly thickened. Mild mitral regurgitation is present. Tricuspid Valve:The tricuspid valve appears structurally normal. Mild tricuspid regurgitation pres ent. The right ventricular systolic pressure, as measured by Doppler, is 26 mmhg. Pulmonic Valve:The pulmonic valve is normal. There is no pulmonic regurgitation present. Aorta:The aortic root, ascending aorta and aortic arch appear normal. IVC:Normal inferior vena cava with normal inspiratory collapse. Pericardium:There is no pericardial effusion. CONCLUSIONS 1. Atrial fibrillation. 2. The left ventricular size is normal. 3. There is borderline concentric left ventricular hypertrophy. 4. Overall left ventricular systolic function is low-normal with, an EF between 50 - 55 %. 5. The diastolic filling pattern indicates impaired relaxation. 6. The left atrium is mildly dilated. 7. Mild mitral regurgitation is present. 8. Mild tricuspid regurgitation present. Electronically Signed By: Akash Villarreal MD -- Electronically Signed On: 12:23:08
[2016-02-22] MEDS: Cefazolin 2gm/50 ml D5W 2 GM/50 ML RTU IV SCH ×2 (12:52→19:36)
[2016-02-22] MEDS ORDERED: MUPIROCIN 2% OINT 22 GM TUBE NAS SCH (14:00)
--- NOTE | 2016-02-22 17:44 | GENMEDPROG ---
Subjective Note: Patient admitted with fevers and confusion. Cultures today grew out strep in his joint as well as in his blood. Patient is very ill. I spent a significant amount of time today discussing with Orthopedics and nursing staff. I attempted to contact the patient's but was unable to reach her. Later in the day case management was able to talk to the power of mushroom growth media mixer for the patient who is his brother. Notes Reviewed: Yes Events from last night noted and discussed with Clinical Staff Current Medication List: Reviewed Currently: Reports: Other (Confusion and dementia). Denies: Ambulating DVT Prophylaxis: Yes - Physical Examination Vital Signs and I&O: Last Vital Signs Temp 98.0 F 02/22/16 17:21 Pulse 112 02/22/16 17:21 Resp 20 02/22/16 17:21 BP 96/52 L 02/22/16 17:21 Pulse Ox 95 02/22/16 17:21 Oxygen Pulse Oxygen Saturation 95 O2 Device Room Air Oxygen Flow Rate Fraction of Inspired Oxygen ( FIO2) Intake & Output 02/19/16 02/20/16 02/21/16 02/22/16 23:59 23:59 23:59 23:59 Intake Total 250 322 269 Balance 250 322 269 Patient's weight 68.538 kg 58.922 kg 58.105 kg General: Alert, Mild distress, Weakness. negative: Oriented x3 HEENT: Normal (Normocephalic, atraumatic;EOMI.Sclera white, Nares patent, without discharge or bleeding. No oropharyngeal lesions or erythema. Mucous membranes are dry.) Neck: Non-tender, Full range of motion, Normal Trachea alignment, Normal inspection (No cervical lymphadenopathy. No supraclavicular lymphadenopathy.), No Masses palpable, Supple Lymphatics: Normal (No lymph node swelling or pain.) Respiratory: Normal - CTA (Clear to auscultation bilaterally. No wheezing, rales , rhonchi. Chest wall movements are symmetric. No use of accessory muscles to breathe.) Cardiovascular: Regular rate and rhythm (No bradycardia or tachycardia), Normal S1, No Gallops,Rubs/Murmurs, Normal S2, Good Pedal Pulses (DP pulses 2+ bilaterally) GI: Normal bowel sounds (normal active sounds), Soft (non-distended), Non tender , No hepatospenomegaly, No masses Extremities/Musculoskeletal: Swelling (Left knee), Edema Skin: Warm,Dry and Intact, No rashes, No significant lesion Neurological: Somnolent Psych/Mental Status: Confabulating, Confused Lab/DI/Studies Reviewed: Microbiology 02/22/16 16:07 Nares MRSA DNA Surveillance Screen - Final 02/22/16 16:07 Nares MSSA Surveillance Screen (PCR) - Final NEGATIVE for MRSA DNA NEGATIVE for Staphylococcus aureus DNA 02/20/16 19:48 Urine - In/Out Catheter Urine Culture - Final No growth <10,00O CFU/ml 02/20/16 22:42 Knee Fluid - Left Joint Fluid Culture - Preliminary Presumptive Strep pneumoniae 02/20/16 22:06 Blood Blood Culture - Preliminary Presumptive Strep pneumoniae 02/20/16 21:43 Blood Blood Culture - Preliminary Presumptive Strep pneumoniae Abnormal Lab Results 02/21/16 02/21/16 20:10 22:30 Creatine Kinase < 20 L < 20 L - Assessment (1) Acute metabolic encephalopathy Acute G93.41 - METABOLIC ENCEPHALOPATHY Comment/Plan: Likely cause of acute mental decompensation is due to septic joint with bacteremia. Patient is MRSA negative and therefore I have started him on cefazolin 1 g IV q.[address] Gracia has kindly seen the patient and arranged for him to have a washout of his knee tomorrow with Dr. GARRISON (2) Septic joint of left knee joint Acute M00.9 - PYOGENIC ARTHRITIS, UNSPECIFIED Qualifiers: Septic arthritis organism: streptococcal Qualified Code(s): M00.262 - Other streptococcal arthritis, left knee Comment/Plan: For surgery in a.m. continue cefazolin for now (3) New onset atrial fibrillation Acute I48.91 - UNSPECIFIED ATRIAL FIBRILLATION Comment/Plan: Cardiology has been consulted suspect this may be due to stress of joint infection and bacteremia (4) Bacterial pneumonia Acute J15.9 - UNSPECIFIED BACTERIAL PNEUMONIA Comment/Plan: Continue current plan (5) Diastolic CHF, acute on chronic Acute I50.33 - ACUTE ON CHRONIC DIASTOLIC (CONGESTIVE) HEART FAILURE Comment /Plan: Continue current plan and treatment of congestive heart failure per evidence based protocol. (6) Bronchiectasis Acute J47.9 - BRONCHIECTASIS, UNCOMPLICATED Qualifiers: Bronchiectasis type: with acute lower respiratory infection Qualified Code( s): J47.0 - Bronchiectasis with acute lower respiratory infection Comment/Plan: Will monitor closely but given septic joint will discontinue steroids. (7) Dementia Acute F03.90 - UNSPECIFIED DEMENTIA WITHOUT BEHAVIORAL DISTURBANCE Comment/ Plan: Chronic issue. May have increased confusion, which could be multifactorial. Unsure of his baseline. Plan: Follow up with primary care for treatment. Monitor neuro status. Treat acute diagnoses. (8) Pleural effusion Acute J90 - PLEURAL EFFUSION, NOT ELSEWHERE CLASSIFIED Comment/Plan: Likely due to diastolic CHF. Plan: IV Lasix. Monitor. (9) Bursitis, prepatellar, left Inactive M70.42 - PREPATELLAR BURSITIS, LEFT KNEE Comment/Plan: No erythema of knee on admission. Fluid drained in the emergency department and sent for studies. Plan: Follow results. PRN pain medication. Further treatment depending on course. - Plan Immediate treatment for septic joint and bacteremia monitor closely. Plan for OR in a.m.. Disposition Plan: Will likely need [facility] facility. Case Care Discussed with: Patient, Consultants, Nursing Staff Total Time: 45 minutes Critical Care: No Couseling Time (>50% in counseling/coordination): No
[2016-02-22] MEDS ORDERED: CHLORHEXIDINE (HIBICLENS) 4 OZ BOTTLE TOP ONE (21:00)
[2016-02-23] MEDS: FUROSEMIDE 40 MG/4 ML VIAL IV SCH ×3 (00:32→17:03)
[2016-02-23] MEDS: Albuterol/Ipratropium Neb 3 ML NEB NEB SCH ×4 (03:16→21:43)
[2016-02-23] MEDS: Cefazolin 2gm/50 ml D5W 2 GM/50 ML RTU IV SCH ×3 (04:45→20:30)
[2016-02-23] MEDS ORDERED: Clindamycin 600 mg/D5W 50 ml 600 MG/50 ML IVB IV ONE (06:00)
[2016-02-23] MEDS: METOPROLOL 5 MG/5 ML SDV IV PRN (08:29)
[2016-02-23 09:18] LABS: MPV 7.7 fL (7.4-10.4)
[2016-02-23] MEDS: ATORVASTATIN 40 MG TAB PO SCH (09:24)
[2016-02-23] MEDS: ASPIRIN (CHEWABLE) 81 MG TAB PO SCH (09:24)
[2016-02-23] MEDS: METOPROLOL TARTRATE 50 MG TAB PO SCH ×2 (09:24→20:33)
[2016-02-23] MEDS: [UNRECOGNIZED DRUG - OTHER] PO SCH ×2 (09:25→15:07)
[2016-02-23] MEDS: LISINOPRIL 2.5 MG TAB PO SCH (09:25)
[2016-02-23 09:34] LABS: BLOOD UREA NITROGEN 55 MG/DL (9-20); CALCIUM 8.8 MG/DL (8.4-10.2); CALCULATED OSMOLALITY 288 MOs/Kg (270-290); CHLORIDE 99 mEq/L (98-107); GLUCOSE 180 MG/DL (70-99); SODIUM LEVEL 139 mEq/L (137-146)
[2016-02-23] MEDS ORDERED: DIGOXIN 0.5 MG/2 ML (250 MCG /ML) AMPULE ONE (09:39)
[2016-02-23] MEDS ORDERED: KETOROLAC TROMETH 30 MG/ML VIAL IM ONE (10:00)
[2016-02-23] MEDS ORDERED: METOPROLOL TARTRATE 25 MG TAB PO ONE (10:00)
[2016-02-23] MEDS ORDERED: FENTANYL 100 MCG/2 ML VIAL IV ONE (10:00)
[2016-02-23] MEDS ORDERED: LIDOCAINE 100 MG PFS IV ONE (10:00)
[2016-02-23] MEDS ORDERED: PROPOFOL 200 MG/20 ML VIAL IV ONE (10:00)
[2016-02-23] MEDS ORDERED: DIGOXIN 0.5 MG/2 ML (250 MCG /ML) AMPULE IV ONE (10:00)
[2016-02-23] MEDS ORDERED: ONDANSETRON HCL 4 MG/2 ML VIAL IV ONE (10:00)
[2016-02-23 10:03] LABS: SEG NEUTROPHIL 89 % (45-76)
--- NOTE | 2016-02-23 10:26 | PCM.ORTHBL ---
- Subjective Chief Complaint: left knee pain/swelling Daily Assessment - Patient: Reports: Still having pain - Objective / Physical Exam Vital Signs: Temperature: 98.2 F (02/23/16 07:54) HR: 128 (02/23/16 10:14)RR: 18 (02/23/16 07 :54) BP: 106/65 (02/23/16 09:30)Pulse Ox: 95 (02/23/16 08:50) General: Alert, Cooperative, Weakness, Other (confused to person, place, and time. At reported baseline) Musculoskeletal / Extremities: 2 plus Dorsalis Pedis Pulse, Other (RLE: + effusion. no erythema. Mild pain w/ axial loading. ROM: 0-85 w/ pain at extremes. Ligamentously stable. SITLT DP/SP/T/S/S. +EHL/FHL/GS) Neurological: Sensation to light touch intact, Extensor Hallicus Longus Intact, Flexor Hallicus Longus Intact, Dorsiflexion Intact, Plantarflexion Intact Skin: Warm,Dry and Intact, No rashes Laboratory/Diagnostics Reviewed: Microbiology 02/20/16 21:43 Blood Blood Culture - Final Presumptive Strep pneumoniae 02/20/16 22:06 Blood Blood Culture - Final Streptococcus pneumoniae 02/22/16 16:07 Nares MRSA DNA Surveillance Screen - Final NEGATIVE for MRSA DNA 02/22/16 16:07 Nares MSSA Surveillance Screen (PCR) - Final NEGATIVE for Staphylococcus aureus DNA 02/20/16 19:48 Urine - In/Out Catheter Urine Culture - Final No growth <10,00O CFU/ml 02/20/16 22:00 N/P - Naso/Pharyngeal Influenza Type A Antigen Screen - Final NEGATIVE Please note: A NEGATIVE result does not exclude an influenza virus infection. It is a presumptive result and, if required, confirmation should be done using either a virus culture or an FDA-cleared influenza A&B molecular assay. ("NORMAL" value = "NEGATIVE".) 02/20/16 22:00 N/P - Naso/Pharyngeal Influenza Type B Antigen Screen - Final NEGATIVE Please note: A NEGATIVE result does not exclude an influenza virus infection. It is a presumptive result and, if required, confirmation should be done using either a virus culture or an FDA-cleared influenza A&B molecular assay. ("NORMAL" value = "NEGATIVE".) Laboratory Results - last 24 hr 02/23/16 02/23/16 08:58 08:58 WBC 13.3 H RBC 3.02 L Hgb 8.5 L Hct 26.3 L MCV 87 MCH 28.3 MCHC 32.4 L RDW 15.8 H Plt Count 225 MPV 7.7 Neut % (Auto) Cancelled Lymph % (Auto) Cancelled [place] % (Auto) Cancelled Eos % (Auto) Cancelled Baso % (Auto) Cancelled Absolute Neuts (auto) Cancelled Absolute Lymphs (auto) Cancelled Seg Neuts % (Manual) 89 H Band Neutrophils % 9 H Lymphocytes % (Manual) 1 L Monocytes % (Manual) 1 Absolute Neutrophils 13.03 H Absolute Lymphocytes 0.13 L Platelet Estimate Norm RBC Morphology 1+ hypo Sodium 139 Potassium 3.4 L Chloride 99 Carbon Dioxide 29 Anion Gap 14 BUN 55 H Creatinine 1.10 Estimated GFR (MDRD) > 60 Glucose 180 H Calculated Osmolality 288 Calcium 8.8 Magnesium 2.00 - Assessment and Plan (1) Septic joint of left knee joint Acute M00.9 - PYOGENIC ARTHRITIS, UNSPECIFIED streptococcal M00.262 - Other streptococcal arthritis, left knee Plan: 81 y/o male w/ Left knee effusion secondary to septic arthritis with Strep Pneum. + cx's sensitive to clindamycin. Pt. is s/p aspiration and is in poor health with multiple medical co-morbidities. Recommend urgent arthroscopic I+D w / Abx. to begin post operatively. Discussed plan w/ patient and nursing staff. Consent from POA has been obtained. Pt. will require I+D for potential improvements in pain, function, and improved likelihood of infection eradication. To OR this morning.
[2016-02-23] MEDS ORDERED: POTASSIUM CHLORIDE 10 MEQ TABLET PO SCH (11:00)
--- NOTE | 2016-02-23 12:09 | PCM.CARD ---
- Subjective Current Assessment: No New Symptoms (Patient has no symptoms from a cardiac standpoint) Vital Signs: Last Vital Signs Temp 98 F 02/23/16 11:39 Pulse 107 02/23/16 11:39 Resp 18 02/23/16 11:39 BP 123/64 02/23/16 11:39 Pulse Ox 98 02/23/16 11:39 EKG Rhythm: Atrial Fibrillation Heart Sounds: S1 & S2 (Heart sounds are irregular. Lungs bilateral air entry with distant sounds. No pedal edema.) - Assessment/Plan (1) New onset atrial fibrillation Acute I48.91 - UNSPECIFIED ATRIAL FIBRILLATION Comment/Plan: Patient's heart rate is under better control and we will keep closely monitored. (2) Sepsis Acute A41.9 - SEPSIS, UNSPECIFIED ORGANISM sepsis due to unspecified organism A41.9 - Sepsis, unspecified organism Comment/Plan: Appreciate orthopedic evaluation and I reviewed their notes. His getting ready to go for a debridement of the joint. (3) Septic joint of left knee joint Acute M00.9 - PYOGENIC ARTHRITIS, UNSPECIFIED streptococcal M00.262 - Other streptococcal arthritis, left knee Comment/Plan: As mentioned above. Followed by orthopedic surgery.
--- NOTE | 2016-02-23 12:22 | HIMOPRPT ---
PREOPERATIVE DIAGNOSIS: Left knee septic arthritis POSTOPERATIVE DIAGNOSIS: Same PROCEDURES: Left knee: 1. Arthroscopic evaluation irrigation 2. Extensive debridement ANESTHESIA: General. SURGEON: Dannie Guadarrama MD. ETL ARCHITECT: BARBARA Jarquin. SPECIMENS: None. COMPLICATIONS: None. TOURNIQUET TIME: 22 minute at 250 millimeters of mercury. IMPLANTS: None. FINDINGS: Extensive purulent material with tricompartmental osteoarthritis and grade 4 changes noted in all 3 compartments. Extensive synovitis. SIGNIFICANT HISTORY, INDICATIONS, AND CONSENT: Duy is a 81-year-old with knee pain and swelling for greater than 1 week. Patient was admitted to the medicine service with multiple medical comorbidities.. Patient was found to have symptoms and clinical evidence of septic arthrosis after knee aspiration and it was decided would benefit from surgical intervention to include irrigation and debridement with other procedures as indicated for potential improvement in pain and decreased likelihood of persistent infection. Consent was obtained. OPERATION IN DETAIL: The patient was seen in the preop holding area. The left knee was signed. Consent was reviewed. Questions were answered. H and P updated. SCD placed on the contralateral lower extremity. The patient was taken to operating room, placed in supine position on the operating table. Anesthesia placed monitoring devices and performed LMA intubation. The left lower extremity had a tourniquet placed high up on the thigh with the contralateral lower extremity in a well leg lambert and the left leg in the leg lambert. The lower extremity was then sterilely prepped and draped in usual orthopedic fashion. Time-out was performed. Antibiotics were held. Next, gravity exsanguination was performed. Tourniquet raised to 250 millimeter of mercury. Standard anteromedial and lateral as well as superomedial outflow portals were created. Diagnostic arthroscopy was then performed. Suprapatellar pouch as well as medial and lateral gutters were inspected with synovitis noted throughout. Purulent material was expressed from the joint and captured through a cannula which was sent for cultures and sensitivities. Grade 4 changes were noted involving the patellofemoral joint as well as the weight-bearing surfaces of the medial femoral condyle, lateral femoral condyle, medial and lateral tibial plateaus. ACL and PCL were probed and found to be intact but degenerative. Medial and lateral compartments were entered with degeneration of the meniscal tissue but no significant tearing or instability present. Using a shaver a thorough debridement of the joint was performed removing all nonviable appearing tissue and inflamed synovium. A total of 9 L was used to thoroughly irrigate and debride the knee joint. After this had been performed our knee was drained. Tourniquet was released. Incision sites were closed with 4-0 nylon suture. Tourniquet was released. The subcutaneous tissue was injected with 0.25% Marcaine at the incision sites and closed with 3-0 nylon suture. Sterile soft tissue dressings were placed. Patient was aroused by Anesthesia and taken to Postanesthesia Care Unit in stable condition. PLAN: The patient will be admitted for IV antibiotics until cultures obtained. Recommend ASA 325 mg PO BID x14 days for DVT chemoprophylaxis. Physical therapy for gentle range of motion and gait training presented.
[2016-02-23] MEDS ORDERED: SODIUM CHLORIDE 0.9% 3 ML FLUSH FLUSH PRN (12:42)
[2016-02-23] MEDS ORDERED: MAGNESIUM HYDROXIDE 30 ML BOTTLE PO PRN (12:42)
[2016-02-23] MEDS ORDERED: MEPERIDINE 25 MG/ML TUBEX IV PRN (12:45)
[2016-02-23] MEDS ORDERED: HYDROmorphone 1 MG INJECTION IV PRN ×2 (12:45)
[2016-02-23] MEDS ORDERED: ONDANSETRON HCL 4 MG ODT TAB PO PRN (12:45)
[2016-02-23] MEDS ORDERED: hydrALAZINE 20 MG/ML VIAL IV PRN (12:45)
[2016-02-23] MEDS ORDERED: ONDANSETRON HCL 4 MG/2 ML VIAL IV PRN (12:45)
[2016-02-23] MEDS ORDERED: PROMETHAZINE 25 MG/ML VIAL IV PRN (12:45)
[2016-02-23] MEDS ORDERED: LABETALOL 20 MG/4 ML SYRINGE IV PRN (12:45)
[2016-02-23] MEDS ORDERED: FENTANYL 100 MCG/2 ML VIAL IV PRN ×2 (12:45)
--- NOTE | 2016-02-23 12:46 | SC.ANESPOS ---
Post-Anesthesia Note LOC: [facility] Calling Post-Anesthesia Assessment: Awake, Returned to Baseline, Hemodynamically Stable , Pain Control Adequate Phase I & II Recovery Complete: Yes Apparent Anesthesia Complication: No : N PACU Discharge Time: 22:59 - Vital Signs Blood Pressure: 123/64 Pulse: 107 Resp Rate: 18 O2 Sat: 98 Temp: 98 F - Comments Anesthesia Discharge Time Report Time 22:59
--- NOTE | 2016-02-23 12:48 | HIM.ANES ---
Anesthesia Evaluation & Plan Surgeon:: Dannie Guadarrama - Focused Review of Systems Cardiac History: Yes: Hx Hypertension, Hx Cardiac Disorders, Hx Congestive Heart Failure (Mild. ECHO 06/2015: EF 55-60%. DIASTOLIC.) HEENT: Yes: Hx Vision Problem (glasses), Other HEENT Problems Respiratory: Yes: Hx Chronic Obstructive Pulmonary Disease (COPD), Hx Pneumonia (With associated scarring of lungs from recent infections) Gastrointestinal: Yes: Hx Gastrointestinal Disorders, Hx Colonoscopy Neurological/Musculoskeletal: Yes: Hx Dementia (moderate to severe) No: Hx Neurological Disorders Psychological: No Hx Depression, No Hx Mental/Emotional Disorders Blood/Autoimmune: No: Hx Blood Transfusions, Hx AIDS, Hx Hepatitis (type) Smoking Status: Former smoker Past Social History: Denies: Alcohol Use, Substance Use Disorder Alcohol use: None Hx Stress Test (date): No Hx Echocardiogram (date): Yes Hx Chest Xray (date): Yes Surgical History: Yes: T&A (AND RIGHT EAR SURGERY) - Focused Physical Exam NPO since: 0000 Mallampati: Class II Thyromental Distance: Greater than 3 Neck: Limited Range of Motion Dental: Other Cardiovascular/Chest: Irregular Respiratory: Crackles Any problems with anesthesia, including nausea and vomiting?: No Any relatives with a history of Malignant Hyperthermia?: No Does patient have a history of Malignant Hyperthermia?: No Beta Tremaine given (if appropriate): Yes Other: Problem List Problem Status Onset Acute metabolic encephalopathy Acute Bacterial pneumonia Acute Bronchiectasis Acute Community acquired bacterial pneumonia Acute Dementia Acute Diastolic CHF, acute on chronic Acute New onset atrial fibrillation Acute Septic joint of left knee joint Acute Altered mental status Acute Cognitive impairment Acute Dehydration Acute Hyponatremia Acute Hypoxia Acute Lactic acidosis Acute Leukocytosis Acute Macrocytic anemia Acute Physical debility Acute Pleural effusion Acute Respiratory insufficiency Acute Sepsis Acute Shock Acute Weakness Acute Adult failure to thrive Chronic Anemia Chronic Depression Chronic Gallstones Chronic Hypertension Chronic Atypical pneumonia Suspected UTI (urinary tract infection) Suspected PT/PTT/INR/ PT 13.1 SEC (9.2-11.2) H 02/20/16 19:44 INR 1.3 02/20/16 19:44 APTT 28.9 SEC (22-35) 02/20/16 19:44 CBC/BMP/Other 02/23/16 08:58 02/23/16 08:58 Allergies Allergy/AdvReac Type Severity Reaction Status Date / Time cefprozil [From Cefzil] Allergy Nausea/Vomi Verified 09/08/15 16:51 ting Home Medications Medication Instructions Recorded Last Taken Type Aspirin [Aspirin, Chewable] 81 mg PO DAILYWM #30 tablet 05/27/13 09/08/15 Rx Metoprolol Tartrate [Lopressor] 50 mg PO BID #60 tablet 05/27/13 09/08/15 Rx Esomeprazole Magnesium [Nexium] 20 mg PO DAILY 07/09/15 09/08/15 History Loratadine [Claritin] 10 mg PO DAILY 07/09/15 09/08/15 History Furosemide [Lasix] 40 mg PO DAILY #60 tab 07/21/15 09/08/15 Rx Guaifenesin [Mucinex] 1,200 mg PO BID #20 tbmp.12hr 07/21/15 09/08/15 Rx L.acidoph/B.animalis/B.longum 460 mg PO DAILY #60 capsule 07/21/15 09/08/15 Rx [Florajen3 Capsule] Magnesium Oxide [Mag-Ox] 400 mg PO BID #60 tablet 07/21/15 09/08/15 Rx Mirtazapine [Remeron] 30 mg PO HS #60 tab 07/21/15 09/07/15 Rx Potassium Chloride 40 meq PO DAILY #60 tablet.er 07/21/15 09/08/15 Rx Height and Weight Patient's height 5 ft 5 in Patient's weight 125 lb 8 oz Weight (Calculated Kilograms) 56.926 BMI 21.6 Vital Signs Temperature 98 F 02/23/16 12:46 Pulse Rate 107 02/23/16 12:46 Respiratory Rate 18 02/23/16 12:46 Blood Pressure 123/64 02/23/16 12:46 Pulse Oxygen Saturation 98 02/23/16 12:46 - Anesthetic Plan Anesthesia Type: General ASA Class: 3 -: I have examined this patient and reviewed the medical record. The patient has been assessed prior to anesthesia. Risks and benefits of anesthesia and anesthetic technique options have been discussed and all questions answered. The patient accepts the risk and desires me to proceed with the planned anesthetic.
[2016-02-23] MEDS ORDERED: BUPIVACAINE 0.25%-EPINEPHRINE 1:200,000 30 ML ONE (12:55)
[2016-02-23] MEDS ORDERED: TRIAMCINOLONE 40 MG/ML VIAL ONE (12:55)
[2016-02-23] MEDS ORDERED: SODIUM CHLORIDE 0.9% 3 ML FLUSH FLUSH SCH (13:00)
[2016-02-23] MEDS ORDERED: NALOXONE 0.4 MG/ML AMPULE IV SCH (13:00)
[2016-02-23] MEDS ORDERED: Pharmacy Discontinue All Previous Acetaminophen Orders SCH (13:00)
[2016-02-23] MEDS: ACETAMINOPHEN 325 MG/TAB TABLET PO SCH ×2 (17:03→22:28)
[2016-02-23] MEDS: SODIUM CHLORIDE 0.9% 3 ML FLUSH FLUSH SCH (17:04)
[2016-02-23] MEDS: ENOXAPARIN 60 MG/0.6 ML PFS SQ SCH (17:04)
--- NOTE | 2016-02-23 17:30 | GENMEDPROG ---
Subjective Note: Patient remains confused and unable to give any useful history. He was found to have a septic arthritis. Will go to the operating room today. Notes Reviewed: Yes Events from last night noted and discussed with Clinical Staff Current Medication List: Reviewed Currently: Reports: Ambulating (states he normally walks at home.). Denies: Cough, Wheezing, MCDONALD, SOB, Nausea and Vomiting, Reflux Sx, Abdominal Pain, Fever /Chills DVT Prophylaxis: Yes - Physical Examination Vital Signs and I&O: Last Vital Signs Temp 97.5 F 02/23/16 15:35 Pulse 92 02/23/16 16:20 Resp 20 02/23/16 15:35 BP 119/66 02/23/16 16:20 Pulse Ox 100 02/23/16 15:35 Oxygen Pulse Oxygen Saturation 100 O2 Device Room Air Oxygen Flow Rate Fraction of Inspired Oxygen ( FIO2) Intake & Output 02/20/16 02/21/16 02/22/16 02/23/16 23:59 23:59 23:59 23:59 Intake Total 250 322 269 138 Output Total 5 Balance 250 322 269 133 Patient's weight 68.538 kg 58.922 kg 58.105 kg 56.926 kg General: Alert, Cooperative, Weakness, Other (confused to person, place, and time. At reported baseline) HEENT: Normal (Normocephalic, atraumatic;EOMI.Sclera white, Nares patent, without discharge or bleeding. No oropharyngeal lesions or erythema. Mucous membranes are dry.) Neck: Non-tender, Full range of motion, Normal Trachea alignment, Normal inspection (No cervical lymphadenopathy. No supraclavicular lymphadenopathy.), No Masses palpable, Supple Lymphatics: Normal (No lymph node swelling or pain.) Respiratory: Normal - CTA (Clear to auscultation bilaterally. No wheezing, rales , rhonchi. Chest wall movements are symmetric. No use of accessory muscles to breathe.) Cardiovascular: Regular rate and rhythm (No bradycardia or tachycardia), Normal S1, No Gallops,Rubs/Murmurs, Normal S2, Good Pedal Pulses (DP pulses 2+ bilaterally) Extremities/Musculoskeletal: Other (Red painful left knee) Skin: Warm,Dry and Intact, No rashes Psych/Mental Status: Confused Lab/DI/Studies Reviewed: Abnormal Lab Results 02/23/16 02/23/16 08:58 08:58 WBC 13.3 H RBC 3.02 L Hgb 8.5 L Hct 26.3 L MCHC 32.4 L RDW 15.8 H Seg Neuts % (Manual) 89 H Band Neutrophils % 9 H Lymphocytes % (Manual) 1 L Absolute Neutrophils 13.03 H Absolute Lymphocytes 0.13 L Potassium 3.4 L BUN 55 H Glucose 180 H - Assessment (1) Acute metabolic encephalopathy Acute G93.41 - METABOLIC ENCEPHALOPATHY Comment/Plan: Likely cause of acute mental decompensation is due to septic joint with bacteremia. Patient is MRSA negative and therefore I have started him on cefazolin 1 g IV q.[address] Gracia has kindly seen the patient and arranged for him to have a washout of his knee today with Dr. GARRISON (2) Septic joint of left knee joint Acute M00.9 - PYOGENIC ARTHRITIS, UNSPECIFIED Qualifiers: Septic arthritis organism: streptococcal Qualified Code(s): M00.262 - Other streptococcal arthritis, left knee Comment/Plan: For surgery Today continue cefazolin for now (3) New onset atrial fibrillation Acute I48.91 - UNSPECIFIED ATRIAL FIBRILLATION Comment/Plan: Cardiology consult for further evaluation and assistance. (4) Bacterial pneumonia Acute J15.9 - UNSPECIFIED BACTERIAL PNEUMONIA Comment/Plan: Do not suspect pneumonia as a cause of his renal issues. I doubt patient had pneumonia at all. (5) Diastolic CHF, acute on chronic Acute I50.33 - ACUTE ON CHRONIC DIASTOLIC (CONGESTIVE) HEART FAILURE Comment /Plan: evidenced based order set used. Is on beta alvarez. since last echo is from 06/2015, will not repeat. (6) Bronchiectasis Acute J47.9 - BRONCHIECTASIS, UNCOMPLICATED Qualifiers: Bronchiectasis type: with acute lower respiratory infection Qualified Code( s): J47.0 - Bronchiectasis with acute lower respiratory infection Comment/Plan: Steroids discontinued due to septic joint in atrial fibrillation Sputum cultures ordered. On nebs but may be limited by new onset a fib. (7) Dementia Acute F03.90 - UNSPECIFIED DEMENTIA WITHOUT BEHAVIORAL DISTURBANCE Qualifiers: Dementia type: unspecified type Comment/Plan: Was agitated last night but is pleasant late in day today. Unknown baseline.There may be new delirium superimposed due to multiple medical issues. (8) Pleural effusion Acute J90 - PLEURAL EFFUSION, NOT ELSEWHERE CLASSIFIED Comment/Plan: IV lasix. Follow CXR and clinical status. May worsen with PNA and a fib. - Plan Immediate treatment for septic joint and bacteremia monitor closely. Plan for OR today. Disposition Plan: Will likely need [facility] facility. Case Care Discussed with: Consultants, Nursing Staff Total Time: 45 minutes Critical Care: No Couseling Time (>50% in counseling/coordination): No
[2016-02-23] MEDS: PREDNISONE 20 MG TAB PO SCH (18:45)
[2016-02-23] MEDS: Clindamycin 600 mg/D5W 50 ml 600 MG/50 ML IVB IV SCH (20:28)
[2016-02-23] MEDS: MIRTAZAPINE 15 MG TAB PO SCH (20:33)
[2016-02-23] MEDS: DOCUSATE-SENNA CONCENTRATE TAB PO SCH (20:34)
[2016-02-23] MEDS ORDERED: Non-Formulary Medication ITEM (Mirtazapine [Remeron] 30 MG) PO SCH (21:00)
[2016-02-24] MEDS: FUROSEMIDE 40 MG/4 ML VIAL IV SCH ×3 (00:33→14:53)
[2016-02-24] MEDS: Albuterol/Ipratropium Neb 3 ML NEB NEB SCH ×4 (02:43→21:06)
[2016-02-24] MEDS: Cefazolin 2gm/50 ml D5W 2 GM/50 ML RTU IV SCH ×2 (03:57→15:57)
[2016-02-24] MEDS: Clindamycin 600 mg/D5W 50 ml 600 MG/50 ML IVB IV SCH ×2 (04:28→11:42)
[2016-02-24 04:53] VITALS: BMI 20.8
--- NOTE | 2016-02-24 06:42 | PCM.ORTHBL ---
- Subjective Post Op Day: 1 - Objective / Physical Exam Vital Signs: Temperature: 98 F (02/24/16 03:37) HR: 84 (02/24/16 04:00)RR: 18 (02/24/16 03:37 ) BP: 123/64 (02/24/16 03:37)Pulse Ox: 98 (02/24/16 03:37) Skin: Warm,Dry and Intact - Assessment and Plan (1) Septic joint of left knee joint Acute M00.9 - PYOGENIC ARTHRITIS, UNSPECIFIED Present on Admission: Yes streptococcal M00.262 - Other streptococcal arthritis, left knee Comment/Plan: POD #1 S/P Left knee arthroscopic I&D doing better. Continue current anbx treatment x 6 weeks. Will monitor left knee for possible reaccumulation. PT/OT WBAT RLE.
--- NOTE | 2016-02-24 06:43 | PCM.ORTHBL ---
- Subjective Chief Complaint: left knee pain/swelling Post Op Day: 1 - Objective / Physical Exam Vital Signs: Temperature: 98 F (02/24/16 03:37) HR: 84 (02/24/16 04:00)RR: 18 (02/24/16 03:37 ) BP: 123/64 (02/24/16 03:37)Pulse Ox: 98 (02/24/16 03:37) General: Alert, Cooperative, No acute distress, Other (confused to person, place , and time) Musculoskeletal / Extremities: 2 plus Dorsalis Pedis Pulse, Dressing Clean/Dry/ Intact Neurological: Sensation to light touch intact (DP/SP/T/S/S), Extensor Hallicus Longus Intact, Flexor Hallicus Longus Intact, Dorsiflexion Intact, Plantarflexion Intact Skin: Warm,Dry and Intact Laboratory/Diagnostics Reviewed: Laboratory Results - last 24 hr 02/23/16 02/23/16 08:58 08:58 WBC 13.3 H RBC 3.02 L Hgb 8.5 L Hct 26.3 L MCV 87 MCH 28.3 MCHC 32.4 L RDW 15.8 H Plt Count 225 MPV 7.7 Neut % (Auto) Cancelled Lymph % (Auto) Cancelled Mcmullen % (Auto) Cancelled Eos % (Auto) Cancelled Baso % (Auto) Cancelled Absolute Neuts (auto) Cancelled Absolute Lymphs (auto) Cancelled Seg Neuts % (Manual) 89 H Band Neutrophils % 9 H Lymphocytes % (Manual) 1 L Monocytes % (Manual) 1 Absolute Neutrophils 13.03 H Absolute Lymphocytes 0.13 L Platelet Estimate Norm RBC Morphology 1+ hypo Sodium 139 Potassium 3.4 L Chloride 99 Carbon Dioxide 29 Anion Gap 14 BUN 55 H Creatinine 1.10 Estimated GFR (MDRD) > 60 Glucose 180 H Calculated Osmolality 288 Calcium 8.8 Magnesium 2.00 - Assessment and Plan (1) Septic joint of left knee joint Acute M00.9 - PYOGENIC ARTHRITIS, UNSPECIFIED M00.262 - Other streptococcal arthritis, left knee Plan: 81-year-old male postoperative day 1 status post left knee arthroscopic irrigation and debridement for septic arthritis growing Streptococcus pneumoniae. Clinical exam and pain improving. Recommend continued IV clindamycin. Will defer long-term antibiotic recommendations to medicine. Will likely require 6 weeks of antibiotic therapy.
[2016-02-24] MEDS: ATORVASTATIN 40 MG TAB PO SCH (08:39)
[2016-02-24] MEDS: METOPROLOL TARTRATE 50 MG TAB PO SCH ×2 (08:39→20:37)
[2016-02-24] MEDS: DONEPEZIL HCL 10 MG TAB PO SCH (08:39)
[2016-02-24] MEDS: LISINOPRIL 2.5 MG TAB PO SCH (08:39)
[2016-02-24] MEDS: ACETAMINOPHEN 325 MG/TAB TABLET PO SCH ×3 (08:40→23:38)
[2016-02-24] MEDS: ENOXAPARIN 60 MG/0.6 ML PFS SQ SCH ×2 (08:40→17:33)
[2016-02-24] MEDS: PREDNISONE 20 MG TAB PO SCH ×2 (08:40→17:34)
[2016-02-24] MEDS: SODIUM CHLORIDE 0.9% 3 ML FLUSH FLUSH SCH ×2 (08:40→17:34)
[2016-02-24] MEDS: POTASSIUM CHLORIDE 20 MEQ TAB PO SCH (08:41)
[2016-02-24] MEDS: ASPIRIN (CHEWABLE) 81 MG TAB PO SCH (08:41)
[2016-02-24] MEDS ORDERED: Non-Formulary Medication ITEM (Potassium Chloride [Potassium Chloride] 40 MEQ) PO SCH (09:00)
[2016-02-24] MEDS: [UNRECOGNIZED DRUG - OTHER] PO SCH ×2 (10:01→14:54)
--- NOTE | 2016-02-24 10:58 | PCM.CARD ---
- Subjective Current Assessment: No New Symptoms (Patient denies any symptoms from a cardiovascular standpoint.) Vital Signs: Last Vital Signs Temp 98.1 F 02/24/16 08:44 Pulse 87 02/24/16 09:51 Resp 18 02/24/16 08:44 BP 173/72 02/24/16 08:44 Pulse Ox 92 02/24/16 08:44 EKG Rhythm: Sinus Rhythm Heart Sounds: S1 & S2 (Heart sounds irregular. Lungs bilateral air entry and no pedal edema.) - Assessment/Plan (1) New onset atrial fibrillation Acute I48.91 - UNSPECIFIED ATRIAL FIBRILLATION Comment/Plan: Patient is now in sinus rhythm. At best he may be a candidate for aspirin full- strength 325 mg coated. I will leave this decision to Internal Medicine. This is because of the patient's dementia which is significant and very aberrant even in my evaluation of him today. He is very confused. We will discharge him from our followup. Please do not hesitate to call us if there are any questions in his cardiovascular management. (2) Sepsis Acute A41.9 - SEPSIS, UNSPECIFIED ORGANISM sepsis due to unspecified organism A41.9 - Sepsis, unspecified organism Comment/Plan: Patient is being treated by the Orthopedic and hospitalist service. (3) Septic joint of left knee joint Acute M00.9 - PYOGENIC ARTHRITIS, UNSPECIFIED streptococcal M00.262 - Other streptococcal arthritis, left knee Comment/Plan: As mentioned above.
[2016-02-24] MEDS: PROBIOTIC BLEND TAB PO SCH ×2 (11:43→17:34)
[2016-02-24] MEDS: ONDANSETRON HCL 4 MG/2 ML VIAL IV PRN ×2 (15:24→21:23)
--- NOTE | 2016-02-24 17:44 | GENMEDPROG ---
Subjective Note: Patient growing out presumptive strep pneumonia from his knee joint and his blood cultures. Awaiting sensitivities. Continue current Keflex and dosing. the patient's is visiting today. She was made aware of his situation. I am not sure she is able to understand the ramifications. Social work has spoken to the patient and the 's [id number] who will be arranging for placement for both of them once the patient gets out of skilled facility. He will need skilled facility upon discharge from our facility. Notes Reviewed: Yes Events from last night noted and discussed with Clinical Staff Current Medication List: Reviewed Currently: Reports: Ambulating (states he normally walks at home.). Denies: Cough, Wheezing, MCDONALD, SOB, Nausea and Vomiting, Reflux Sx, Abdominal Pain, Fever /Chills DVT Prophylaxis: Yes - Physical Examination Vital Signs and I&O: Last Vital Signs Temp 97.8 F 02/24/16 17:15 Pulse 83 02/24/16 17:15 Resp 18 02/24/16 17:15 BP 145/70 02/24/16 17:15 Pulse Ox 93 02/24/16 17:15 Oxygen Pulse Oxygen Saturation 93 O2 Device Room Air Oxygen Flow Rate Fraction of Inspired Oxygen ( FIO2) Intake & Output 02/21/16 02/22/16 02/23/16 02/24/16 23:59 23:59 23:59 23:59 Intake Total 322 120 935 1469 Output Total 5 150 Balance 322 410 213 3107 Patient's weight 58.922 kg 58.105 kg 56.926 kg 56.812 kg General: Alert, Cooperative, No acute distress, Other (confused to person, place , and time) Respiratory: Normal - CTA (Clear to auscultation bilaterally. No wheezing, rales , rhonchi. Chest wall movements are symmetric. No use of accessory muscles to breathe.) Cardiovascular: Regular rate and rhythm (No bradycardia or tachycardia), Normal S1, No Gallops,Rubs/Murmurs, Normal S2, Good Pedal Pulses (DP pulses 2+ bilaterally) GI: Normal bowel sounds (normal active sounds), Soft (non-distended), Non tender , No hepatospenomegaly, No masses Extremities/Musculoskeletal: Other (Left knee wrapped in Renny bandage. Dressing clean and dry.) Skin: Warm,Dry and Intact Neurological: Other (Profoundly demented but more awake today.) Psych/Mental Status: Confused, Disoriented Lab/DI/Studies Reviewed: Microbiology 02/20/16 21:43 Blood Blood Culture - Final Presumptive Strep pneumoniae 02/20/16 22:06 Blood Blood Culture - Final Streptococcus pneumoniae 02/22/16 16:07 Nares MRSA DNA Surveillance Screen - Final NEGATIVE for MRSA DNA 02/22/16 16:07 Nares MSSA Surveillance Screen (PCR) - Final NEGATIVE for Staphylococcus aureus DNA 02/20/16 19:48 Urine - In/Out Catheter Urine Culture - Final No growth <10,00O CFU/ml 02/20/16 22:00 N/P - Naso/Pharyngeal Influenza Type A Antigen Screen - Final NEGATIVE Please note: A NEGATIVE result does not exclude an influenza virus infection. It is a presumptive result and, if required, confirmation should be done using either a virus culture or an FDA-cleared influenza A&B molecular assay. ("NORMAL" value = "NEGATIVE".) 02/20/16 22:00 N/P - Naso/Pharyngeal Influenza Type B Antigen Screen - Final NEGATIVE Please note: A NEGATIVE result does not exclude an influenza virus infection. It is a presumptive result and, if required, confirmation should be done using either a virus culture or an FDA-cleared influenza A&B molecular assay. ("NORMAL" value = "NEGATIVE".) - Assessment (1) Acute metabolic encephalopathy Acute G93.41 - METABOLIC ENCEPHALOPATHY Comment/Plan: Likely cause of acute mental decompensation is due to septic joint with strep pneumonia bacteremia. reports puss in the knee at surgery yesterday. Mentation is improving after relief of infection.. (2) Septic joint of left knee joint Acute M00.9 - PYOGENIC ARTHRITIS, UNSPECIFIED Qualifiers: Septic arthritis organism: streptococcal Qualified Code(s): M00.262 - Other streptococcal arthritis, left knee Comment/Plan: Patient to switch to ceftriaxone. He will get 2 g IV for 14 days total. will require halfway facility at discharge. (3) New onset atrial fibrillation Acute I48.91 - UNSPECIFIED ATRIAL FIBRILLATION Comment/Plan: Appreciate Cardiology assistance. (4) Bacterial pneumonia Acute J15.9 - UNSPECIFIED BACTERIAL PNEUMONIA Comment/Plan: Do not suspect pneumonia as a cause of his renal issues. I doubt patient had pneumonia at all. Admission chest x-ray is compared to a CT scan from December. This is quite confusing. Patient currently on ceftriaxone which should cover most pneumonias. Including strep pneumonia. (5) Diastolic CHF, acute on chronic Acute I50.33 - ACUTE ON CHRONIC DIASTOLIC (CONGESTIVE) HEART FAILURE Comment /Plan: evidenced based order set used. Is on beta alvarez. since last echo is from 06/2015, will not repeat. (6) Bronchiectasis Acute J47.9 - BRONCHIECTASIS, UNCOMPLICATED Qualifiers: Bronchiectasis type: with acute lower respiratory infection Qualified Code( s): J47.0 - Bronchiectasis with acute lower respiratory infection Comment/Plan: IV Steroids discontinued due to septic joint in atrial fibrillation Sputum cultures ordered. On nebs but may be limited by new onset a fib. Patient continues on usual dose of 20 mg of p.o. prednisone daily. (7) Dementia Acute F03.90 - UNSPECIFIED DEMENTIA WITHOUT BEHAVIORAL DISTURBANCE Qualifiers: Dementia type: unspecified type Dementia behavioral disturbance: without behavioral disturbance Qualified Code(s): F03.90 - Unspecified dementia without behavioral disturbance Comment/Plan: Patient's agitation and confusion has significantly improved. He is able to sit up in bed and hold a cup today. I suspect most of his acute metabolic encephalopathy and delirium was due to streptococcal bacteremia and infection of his joint. (8) Pleural effusion Acute J90 - PLEURAL EFFUSION, NOT ELSEWHERE CLASSIFIED Comment/Plan: IV lasix. Follow CXR and clinical status. May worsen with PNA and a fib. - Plan Immediate treatment for septic joint and bacteremia monitor closely. Plan for OR today. Disposition Plan: Will likely need halfway facility. Case Care Discussed with: Patient, Nursing Staff Education/Counseling Given To: Patient Education/Counseling Given Regarding: Diagnosis, Treatment, Prognosis Total Time: 45 minutes Critical Care: No Couseling Time (>50% in counseling/coordination): No
[2016-02-24] MEDS: MIRTAZAPINE 15 MG TAB PO SCH (20:34)
[2016-02-24] MEDS: DOCUSATE-SENNA CONCENTRATE TAB PO SCH (20:35)
[2016-02-25] MEDS: Cefazolin 2gm/50 ml D5W 2 GM/50 ML RTU IV SCH ×2 (00:30→07:31)
[2016-02-25] MEDS: FUROSEMIDE 40 MG/4 ML VIAL IV SCH ×4 (00:30→21:39)
[2016-02-25] MEDS: Albuterol/Ipratropium Neb 3 ML NEB NEB SCH ×4 (01:00→19:46)
[2016-02-25] MEDS: ENOXAPARIN 60 MG/0.6 ML PFS SQ SCH ×2 (05:40→17:47)
[2016-02-25] MEDS: ACETAMINOPHEN 325 MG/TAB TABLET PO SCH ×3 (05:40→21:39)
[2016-02-25] MEDS: SODIUM CHLORIDE 0.9% 3 ML FLUSH FLUSH SCH ×2 (05:41→17:48)
--- NOTE | 2016-02-25 08:03 | PCM.ORTHBL ---
- Subjective Post Op Day: 2 Daily Assessment - Patient: Reports: Still having pain, Afebrile - Objective / Physical Exam Vital Signs: Temperature: 98.0 F (02/25/16 05:55) HR: 111 (02/25/16 05:55)RR: 20 (02/25/16 05 :55) BP: 160/78 (02/25/16 05:55)Pulse Ox: 94 (02/25/16 05:55) General: Cooperative, No acute distress Musculoskeletal / Extremities: 2 plus Dorsalis Pedis Pulse, Dressing Clean/Dry/ Intact, Tenderness, Swelling, Other (effusion(moderate)) Neurological: Extensor Hallicus Longus Intact, Flexor Hallicus Longus Intact, Dorsiflexion Intact, Plantarflexion Intact Skin: Warm,Dry and Intact - Assessment and Plan (1) Septic joint of left knee joint Acute M00.9 - PYOGENIC ARTHRITIS, UNSPECIFIED streptococcal M00.262 - Other streptococcal arthritis, left knee Comment/Plan: s/p left knee arthroscopic washout day #2. PT/OT for WBAT/knee ROM. Change dressing today with bandaides. Continue IV anbx for strep pneumoniae. Will follow.
[2016-02-25] MEDS: CEFTRIAXONE 2 GM in D5W 100 ML IV SCH (09:09)
[2016-02-25] MEDS: ONDANSETRON HCL 4 MG/2 ML VIAL IV PRN (09:18)
[2016-02-25 09:21] LABS: MPV 8.2 fL (7.4-10.4)
[2016-02-25 09:57] LABS: SEG NEUTROPHIL 94 % (45-76)
[2016-02-25 10:01] LABS: BLOOD UREA NITROGEN 65 MG/DL (9-20); CALCIUM 9.1 MG/DL (8.4-10.2); CALCULATED OSMOLALITY 295 MOs/Kg (270-290); CHLORIDE 96 mEq/L (98-107); GLUCOSE 153 MG/DL (70-99); SODIUM LEVEL 142 mEq/L (137-146)
[2016-02-25] MEDS: ASPIRIN (CHEWABLE) 81 MG TAB PO SCH (10:25)
[2016-02-25] MEDS: POTASSIUM CHLORIDE 20 MEQ TAB PO SCH (10:27)
[2016-02-25] MEDS: PREDNISONE 20 MG TAB PO SCH ×2 (10:27→17:47)
[2016-02-25] MEDS: LISINOPRIL 2.5 MG TAB PO SCH (10:28)
[2016-02-25] MEDS: METOPROLOL TARTRATE 50 MG TAB PO SCH ×2 (10:28→21:38)
[2016-02-25] MEDS: DONEPEZIL HCL 10 MG TAB PO SCH (10:28)
[2016-02-25] MEDS: ATORVASTATIN 40 MG TAB PO SCH (10:28)
[2016-02-25] MEDS: [UNRECOGNIZED DRUG - OTHER] PO SCH ×2 (10:28→15:03)
[2016-02-25] MEDS: PROBIOTIC BLEND TAB PO SCH ×2 (10:29→17:47)
[2016-02-25] MEDS ORDERED: LIDOCAINE 1% 30 ML VIAL (PRESERVATIVE FREE) ONE (13:33)
--- NOTE | 2016-02-25 14:23 | DIRPT ---
CLINICAL DATA: Septic knee joint with need for IV antibiotics EXAM: Power PICC LINE PLACEMENT WITH ULTRASOUND AND FLUOROSCOPIC GUIDANCE FLUOROSCOPY TIME: Dictate in minutes \T\ seconds PROCEDURE: The patient was advised of the possible risks and complications and agreed to undergo the procedure. The patient was then brought to the angiographic suite for the procedure. The right arm was prepped with chlorhexidine, draped in the usual sterile fashion using maximum barrier technique (cap and mask, sterile gown, sterile gloves, large sterile sheet, hand hygiene and cutaneous antisepsis) and infiltrated locally with 1% Lidocaine. Ultrasound demonstrated patency of the right basilic vein, and this was documented with an image. Under real-time ultrasound guidance, this vein was accessed with a 21 gauge micropuncture needle and image documentation was performed. A 0.018 wire was introduced in to the vein. Over this, a 5 Divehi single lumen power PICC was advanced to the lower SVC/right atrial junction. The catheter was trimmed to 40 cm. Fluoroscopy during the procedure and fluoro spot radiograph confirms appropriate catheter position. The catheter was flushed and covered with a sterile dressing. COMPLICATIONS: None immediate IMPRESSION: Successful right arm power PICC line placement with ultrasound and fluoroscopic guidance. The catheter is ready for use. Electronically Signed By: Oswaldo Lindsey M.D. On: 02/25/2016 14:20
--- NOTE | 2016-02-25 17:29 | GENMEDPROG ---
Subjective Note: Patient doing significantly better. He is sitting up in bed he is feeding himself. He is answering social questions appropriately. He continues to have dementia. Delirium has significantly improved compared to what it was upon admission. Notes Reviewed: Yes Events from last night noted and discussed with Clinical Staff Current Medication List: Reviewed Currently: Reports: Ambulating (states he normally walks at home.). Denies: Cough, Wheezing, MCDONALD, SOB, Nausea and Vomiting, Reflux Sx, Abdominal Pain, Fever /Chills DVT Prophylaxis: Yes - Physical Examination Vital Signs and I&O: Last Vital Signs Temp 98.7 F 02/25/16 11:02 Pulse 119 02/25/16 11:02 Resp 20 02/25/16 11:02 BP 131/79 02/25/16 11:02 Pulse Ox 91 02/25/16 11:02 Oxygen Pulse Oxygen Saturation 91 O2 Device Room Air Oxygen Flow Rate Fraction of Inspired Oxygen ( FIO2) Intake & Output 02/22/16 02/23/16 02/24/16 02/25/16 23:59 23:59 23:59 23:59 Intake Total 235 171 8454 432 Output Total 5 250 200 Balance 833 481 0897 232 Patient's weight 58.105 kg 56.926 kg 56.812 kg General: Cooperative, No acute distress HEENT: Normal Lymphatics: Normal (No lymph node swelling or pain.) Respiratory: Normal - CTA (Clear to auscultation bilaterally. No wheezing, rales , rhonchi. Chest wall movements are symmetric. No use of accessory muscles to breathe.) Cardiovascular: Regular rate and rhythm (No bradycardia or tachycardia), Normal S1, No Gallops,Rubs/Murmurs, Normal S2, Good Pedal Pulses (DP pulses 2+ bilaterally) GI: Normal bowel sounds (normal active sounds), Soft (non-distended), Non tender , No hepatospenomegaly, No masses Extremities/Musculoskeletal: Other (Left lower extremity wrapped dressing clean and dry.) Skin: Warm,Dry and Intact Lab/DI/Studies Reviewed: Abnormal Lab Results 02/25/16 02/25/16 09:05 09:05 WBC 17.9 H RBC 3.54 L Hgb 9.9 L D Hct 30.6 L MCHC 32.2 L RDW 16.2 H Seg Neuts % (Manual) 94 H Lymphocytes % (Manual) 6 L Absolute Neutrophils 16.83 H Chloride 96 L Carbon Dioxide 36 H BUN 65 H Creatinine 1.30 H Estimated GFR (MDRD) 53 L Glucose 153 H Calculated Osmolality 295 H - Assessment (1) Acute metabolic encephalopathy Acute G93.41 - METABOLIC ENCEPHALOPATHY Comment/Plan: Likely cause of acute mental decompensation is due to septic joint with strep pneumonia bacteremia. reports puss in the knee at surgery yesterday. Mentation is improving after relief of infection.. (2) Septic joint of left knee joint Acute M00.9 - PYOGENIC ARTHRITIS, UNSPECIFIED Qualifiers: Septic arthritis organism: streptococcal Qualified Code(s): M00.262 - Other streptococcal arthritis, left knee Comment/Plan: Patient to switch to ceftriaxone. He will get 2 g IV for 14 days total. will require [facility] facility at discharge. (3) New onset atrial fibrillation Acute I48.91 - UNSPECIFIED ATRIAL FIBRILLATION Comment/Plan: Appreciate Cardiology assistance. (4) Bacterial pneumonia Acute J15.9 - UNSPECIFIED BACTERIAL PNEUMONIA Comment/Plan: Do not suspect pneumonia as a cause of his renal issues. I doubt patient had pneumonia at all. Admission chest x-ray is compared to a CT scan from December. This is quite confusing. Patient currently on ceftriaxone which should cover most pneumonias. Including strep pneumonia. (5) Diastolic CHF, acute on chronic Acute I50.33 - ACUTE ON CHRONIC DIASTOLIC (CONGESTIVE) HEART FAILURE Comment /Plan: evidenced based order set used. Is on beta alvarez. since last echo is from 06/2015, will not repeat. (6) Bronchiectasis Acute J47.9 - BRONCHIECTASIS, UNCOMPLICATED Qualifiers: Bronchiectasis type: with acute lower respiratory infection Qualified Code( s): J47.0 - Bronchiectasis with acute lower respiratory infection Comment/Plan: IV Steroids discontinued due to septic joint in atrial fibrillation Sputum cultures ordered. On nebs but may be limited by new onset a fib. Patient continues on usual dose of 20 mg of p.o. prednisone daily. (7) Dementia Acute F03.90 - UNSPECIFIED DEMENTIA WITHOUT BEHAVIORAL DISTURBANCE Qualifiers: Dementia type: unspecified type Dementia behavioral disturbance: without behavioral disturbance Qualified Code(s): F03.90 - Unspecified dementia without behavioral disturbance Comment/Plan: Patient's agitation and confusion has significantly improved. He is able to sit up in bed and hold a cup today. I suspect most of his acute metabolic encephalopathy and delirium was due to streptococcal bacteremia and infection of his joint. (8) Pleural effusion Acute J90 - PLEURAL EFFUSION, NOT ELSEWHERE CLASSIFIED Comment/Plan: IV lasix. Follow CXR and clinical status. May worsen with PNA and a fib. (9) Leukocytosis Acute D72.829 - ELEVATED WHITE BLOOD CELL COUNT, UNSPECIFIED Qualifiers: Leukocytosis type: bandemia Qualified Code(s): D72.825 - Bandemia Comment/Plan: White blood cell count is increasing despite therapy for acute infection. Will check a chest x-ray and monitor stools. Significant concern for C diff. Kaykay Q and yogurt are ordered. No stools documented since February 20. - Plan Immediate treatment for septic joint and bacteremia monitor closely. Plan for OR today. Disposition Plan: Will likely need [facility] facility. Case Care Discussed with: Patient, Nursing Staff Education/Counseling Given To: Patient Education/Counseling Given Regarding: Diagnosis, Treatment, Prognosis, Disposition Plan Total Time: 45 minutes Critical Care: No Couseling Time (>50% in counseling/coordination): No
[2016-02-25] MEDS: MIRTAZAPINE 15 MG TAB PO SCH (21:38)
[2016-02-25] MEDS: DOCUSATE-SENNA CONCENTRATE TAB PO SCH (21:38)
[2016-02-26] MEDS: Albuterol/Ipratropium Neb 3 ML NEB NEB SCH ×3 (01:43→15:32)
[2016-02-26 05:08] LABS: MPV 8.8 fL (7.4-10.4)
[2016-02-26 05:22] LABS: BLOOD UREA NITROGEN 78 MG/DL (9-20); CALCIUM 9.2 MG/DL (8.4-10.2); CALCULATED OSMOLALITY 300 MOs/Kg (270-290); CHLORIDE 97 mEq/L (98-107); GLUCOSE 246 MG/DL (70-99); SODIUM LEVEL 140 mEq/L (137-146)
[2016-02-26] MEDS: ACETAMINOPHEN 325 MG/TAB TABLET PO SCH ×2 (06:02→14:44)
[2016-02-26] MEDS: SODIUM CHLORIDE 0.9% 3 ML FLUSH FLUSH SCH (06:02)
[2016-02-26] MEDS: ENOXAPARIN 60 MG/0.6 ML PFS SQ SCH (06:02)
[2016-02-26 07:01] LABS: SEG NEUTROPHIL 90 % (45-76)
--- NOTE | 2016-02-26 07:10 | PCM.DCS92 ---
- Final/Secondary Discharge Diagnosis (1) Septic joint of left knee joint Acute M00.9 - PYOGENIC ARTHRITIS, UNSPECIFIED Present on Admission: Yes streptococcal M00.262 - Other streptococcal arthritis, left knee Discharge Disposition: Longterm Facility Cognitive Discharge Status: Cognitive deficits prevent decision making for safety. Fuctional Discharge Status: Walker Assistance, Post-op Weakness Diet at Discharge: Regular Activity: No Heavy Lifting, No Driving Call Office For: Worsening Symptoms, Wound is Draining Pus, Fever over 101 F, Pain Uncontrolled By Meds Discontinue use of:: Alcohol, All Illegal Substances, All Types of Tobacco - DC Summary Notes Hospital Course Note:: Discharge summary on patient named NOBLE MO admitted to [facility] on 02/20/16 by Mark Vanessa MD. Date of discharge is []. <[place] - Last Filed: 02/26/16 07:08> - Final/Secondary Discharge Diagnosis (1) Septic joint of left knee joint Acute M00.9 - PYOGENIC ARTHRITIS, UNSPECIFIED Present on Admission: Yes streptococcal M00.262 - Other streptococcal arthritis, left knee Discharge Disposition: Longterm Facility Diet at Discharge: Regular Call Office For: Worsening Symptoms, Wound is Draining Pus, Fever over 101 F, Fever over 100.5, Wound is Painful, Wound is Red, Weight Gain (see below), Pain Uncontrolled By Meds, Other (See Details) - DC Summary Notes Hospital Course Note:: Discharge summary on patient named NOBLE MO admitted to [facility] on 02/20/16 by Mark Vanessa MD. Date of discharge is []. <Dannie Guadarrama - Last Filed: 02/26/16 14:11> Discharge Condition: Improved Physician Follow up/Referrals: None,No Provider [Family Provider] - F/U Facility Physician Dannie Guadarrama MD [Staff Physician] - One Week New Prescriptions: Albuterol/Ipratropium Neb [Duoneb] 3 ml NEB Q6H #60 nebu Calcium Carbonate + Vitamin D [Oscal with Vitamin D] 500 mg PO BID #60 tab Ceftriaxone [Rocephin] 2 gm IV Q24H #10 sdv Furosemide [Lasix] 40 mg PO BID #120 tab L.acidoph/B.animalis/B.longum [Florajen3 Capsule] 460 mg PO DAILY #60 capsule Levofloxacin [Levaquin] 750 mg PO DAILY #5 tablet Lisinopril 2.5 mg PO DAILY #60 tablet Omeprazole 20 mg PO DAILY #30 tablet. Oxycodone Immediate Release [Oxycodone Immediate Release (OxyIR)] 5 mg PO Q6H PRN #60 tab PRN Reason: Pain Wound Care Surgical Site: Yes Dressing/Site Care (if applicable): ok to shower, but place dry bandaids on incision sites after showering and drying. NO SOAKING. <Dannie Guadarrama - Last Filed: 02/26/16 14:11> Continue Ice Packs/Ice Machine to Operative Area: Yes Activity as Tolerated: Yes Weight Bearing: Full Current Dressing: Other Dressing Care: Keep Wound Clean & Dry, Shower with Tegaderm Dsg, No Tub Baths <[place] - Last Filed: 02/26/16 07:08> Medical Equipment (Order must still be written on paper): Walker Medication Instructions: Take Stool Softener, Rx on Chart Current Dressing: Other (band aids) Dressing Care: Keep Wound Clean & Dry, No Tub Baths - Consults/Home Health Outpatient Consults: Physical Therapy <Dannie Guadarrama - Last Filed: 02/26/16 14:11> - Physical Exam Vital Signs: Initial Vitals Temperature 98.4 F 02/20/16 19:25 Pulse Rate 88 02/20/16 19:25 Respiratory Rate 28 H 02/20/16 19:25 Blood Pressure 108/53 L 02/20/16 19:25 Pulse Oxygen Saturation 92 02/20/16 19:25 <[place] - Last Filed: 02/26/16 07:08> - Physical Exam Vital Signs: Initial Vitals Temperature 98.4 F 02/20/16 19:25 Pulse Rate 88 02/20/16 19:25 Respiratory Rate 28 H 02/20/16 19:25 Blood Pressure 108/53 L 02/20/16 19:25 Pulse Oxygen Saturation 92 02/20/16 19:25 <Dannie Guadarrama - Last Filed: 02/26/16 14:11>
[2016-02-26 07:37] VITALS: TEMP 98.4
[2016-02-26] MEDS: ASPIRIN (CHEWABLE) 81 MG TAB PO SCH (10:05)
[2016-02-26] MEDS: PREDNISONE 20 MG TAB PO SCH (10:06)
[2016-02-26] MEDS: DONEPEZIL HCL 10 MG TAB PO SCH (10:06)
[2016-02-26] MEDS: POTASSIUM CHLORIDE 20 MEQ TAB PO SCH (10:06)
[2016-02-26] MEDS: ATORVASTATIN 40 MG TAB PO SCH (10:06)
[2016-02-26] MEDS: METOPROLOL TARTRATE 50 MG TAB PO SCH (10:07)
[2016-02-26] MEDS: LISINOPRIL 2.5 MG TAB PO SCH (10:07)
[2016-02-26] MEDS: CEFTRIAXONE 2 GM in D5W 100 ML IV SCH (10:08)
[2016-02-26] MEDS: FUROSEMIDE 40 MG/4 ML VIAL IV SCH ×2 (10:08→16:15)
--- NOTE | 2016-02-26 11:07 | DIRPT ---
CLINICAL DATA: Evaluate for pleural effusion and pneumonia. Weakness and shortness of breath EXAM: CHEST 1 VIEW COMPARISON: 02/20/2016 FINDINGS: Smaller left pleural effusion, cannot exclude an element of loculation. Stable small right pleural effusion. COPD and coarse and cystic interstitial opacities at the bases. Hyperinflation. No pulmonary edema. Right upper extremity PICC, tip at the SVC level. Stable cardiomegaly and aortic tortuosity. Stable thickening at the right apex. IMPRESSION: 1. Mild decrease in small left pleural effusion. 2. Basilar bronchiectasis and pulmonary fibrosis with background COPD. Superimposed pneumonia at the bases would be obscured. Electronically Signed By: Dev Molina M.D. On: 02/26/2016 11:05
[2016-02-26] MEDS: [UNRECOGNIZED DRUG - OTHER] PO SCH ×2 (11:17→14:44)
[2016-02-26] MEDS ORDERED: PROBIOTIC BLEND TAB PO SCH (12:00)
[2016-02-26 12:06] VITALS: BP 131/61
--- NOTE | 2016-02-26 13:22 | PCM.DCS92 ---
- Final/Secondary Discharge Diagnosis (1) Acute metabolic encephalopathy Acute G93.41 - METABOLIC ENCEPHALOPATHY Present on Admission: Yes Comment: Continue supportive care avoid, anticholinergics minimize sedation. Continue supportive care avoid anticholinergics minimize sedation (2) Community acquired bacterial pneumonia Acute J15.9 - UNSPECIFIED BACTERIAL PNEUMONIA Present on Admission: Yes Plan/Goal/Comment: Continue and finish course of antibiotics. Continue aggressive pulmonary toileting. (3) Septic joint of left knee joint Acute M00.9 - PYOGENIC ARTHRITIS, UNSPECIFIED Present on Admission: Yes streptococcal M00.262 - Other streptococcal arthritis, left knee Comment: Status post knee irrigation by Ortho. Continue IV antibiotics (4) Bacteremia due to group B Streptococcus Acute R78.81 - BACTEREMIA Present on Admission: Yes Plan/Goal/Comment: Continue IV antibiotics. (5) Dementia Acute F03.90 - UNSPECIFIED DEMENTIA WITHOUT BEHAVIORAL DISTURBANCE Present on Admission: Yes unspecified type without behavioral disturbance F03.90 - Unspecified dementia without behavioral disturbance Comment: Continue supportive care. (6) Diastolic CHF, acute on chronic Acute I50.33 - ACUTE ON CHRONIC DIASTOLIC (CONGESTIVE) HEART FAILURE Present on Admission: Yes Comment: Continue salt restriction and Lasix monitor weight (7) Macrocytic anemia Chronic D53.9 - NUTRITIONAL ANEMIA, UNSPECIFIED Present on Admission: Yes Comment: Monitor counts. Continue multivitamin with iron. (8) Pleural effusion Chronic J90 - PLEURAL EFFUSION, NOT ELSEWHERE CLASSIFIED Present on Admission: Yes Comment: Continue Lasix (9) Adult failure to thrive Chronic R62.7 - ADULT FAILURE TO THRIVE Comment: Continue nutritional support (10) Hypertension Chronic I10 - ESSENTIAL (PRIMARY) HYPERTENSION essential hypertension I10 - Essential (primary) hypertension Comment: 08/23/2015 improving. Continue to monitor. Continue with blood pressure medications when stable. 08/22/2015 Hypotensive so will have to hold his therapy for now. (11) Physical debility Acute R53.81 - OTHER MALAISE Plan/Goal/Comment: Continue PTOT Discharge Disposition: Senior Care Facility Discharge Condition: Improved Cognitive Discharge Status: Cognitive deficits prevent decision making for safety. Fuctional Discharge Status: Walker Assistance, Wheelchair Assistance, Fall Risk , Deconditioning, Ambulatory Dysfunction Physician Follow up/Referrals: None,No Provider [Family Provider] - One Week Dannie Guadarrama MD [Staff Physician] - Two Weeks New Prescriptions: Albuterol/Ipratropium Neb [Duoneb] 3 ml NEB Q6H #60 nebu L.acidoph/B.animalis/B.longum [Florajen3 Capsule] 460 mg PO DAILY #60 capsule Furosemide [Lasix] 40 mg PO BID #120 tab Levofloxacin [Levaquin] 750 mg PO DAILY #5 tablet Lisinopril 2.5 mg PO DAILY #60 tablet Omeprazole 20 mg PO DAILY #30 tablet. Calcium Carbonate + Vitamin D [Oscal with Vitamin D] 500 mg PO BID #60 tab Oxycodone Immediate Release [Oxycodone Immediate Release (OxyIR)] 5 mg PO Q6H PRN #60 tab PRN Reason: Pain Ceftriaxone [Rocephin] 2 gm IV Q24H #10 sdv O2 Device: Room Air Diet at Discharge: Regular, Heart Healthy, High Fiber Activity: No Heavy Lifting, No Driving Call Office For: Worsening Symptoms, Wound is Draining Pus, Fever over 101 F, Pain Uncontrolled By Meds Discontinue use of:: Alcohol, All Illegal Substances, All Types of Tobacco - DC Summary Notes Hospital Course Note:: Discharge summary on patient named NOBLE MO admitted to [facility] on 02/20/16 by Mark Vanessa MD. Date of discharge is . Patient was initially brought to emergency room on February 19 for evaluation of diminished level of responsiveness ,confusion, worsening difficulties breathing with cough and phlegm production also painful swelling will redness and limitation of motion involving left knee. ED workup was undertaken patient was found hypoxic tachypneic and tachycardic. Chest x-ray showed increased bilateral lower lobe consolidation, left knee was found acutely swollen with painful and limited range of motion. Treatment broad-spectrum antibiotics was instituted and patient is admitted to monitor bed. Patient seen in consultation by Orthopedics Dr. Guadarrama and was diagnosed with septic left knee arthritis. Patient has subsequently undergone arthroscopic irrigation. Joint fluid and blood cultures grew Streptococcus pneumoniae. And treatment broad- spectrum antibiotics was continued. Final culture showed that Streptococcus was susceptible penicillins cephalosporins and quinolones. Patient required IV diuretic and his pulmonary status has slowly but progressively improved and stabilized. By the time of discharge she was weaned down to 1 L nasal cannula. Due to significant deconditioning patient was seen evaluated by PT OT and made some progress with therapy-inpatient skilled PT was recommended. PICC line was inserted and on March 27 patient was cleared for discharge by Orthopedics. During hospital stay patient has remained hemodynamically stable and there was no behavior problems related to underlying dementia. On February 25 in clinically improved condition patient is being discharged to group home facility for PT OT OT and IV antibiotic therapy. Total Time: 45 min. Code: 05645 (>30min.) - Physical Exam Vital Signs: Last Vital Signs Temp 98.4 F 02/26/16 12:03 Pulse 75 02/26/16 12:03 Resp 20 02/26/16 12:03 BP 131/61 02/26/16 12:03 Pulse Ox 92 02/26/16 12:03 Oxygen Pulse Oxygen Saturation 92 O2 Device Room Air Oxygen Flow Rate Fraction of Inspired Oxygen ( FIO2) Constitutional: No apparent distress, Alert, Confused, Other (Patient is currently confused and is not oriented to time and space.) Oriented to: Time, Person, Place - HEENT Head: Normal (normocephalic, atraumatic.), Other (No cervical lymphadenopathy. No supraclavicular lymphadenopathy. Neck: No palpable mass, supple , trachea midline.) Eye: Normal Oropharynx: Normal ENT EAC: Normal TMJ: Normal Nose: No Symptoms Reported - Respiratory/Cardiovascular Respiratory: Normal - CTA (Clear to auscultation bilaterally. No wheezing, rales , rhonchi. Chest wall movements are symmetric. No use of accessory muscles to breathe.), Diminished, Rhonchi. negative: Wheezes Cardiovascular: Normal, Systolic murmur - GI Auscultation: Normal (NABS) Palpation: Normal (Soft,No rebound or guarding, non distended) Tenderness: Non tender Rectal Exam: Deferred - Exam Deferred: Yes - Musculoskeletal Back: Normal Extremities: Pedal Pulse (Dorsalis pedis and posterior tibial pulses are palpable.), Other (Left knee exam positive effusion. There is no local erythema. Left knee range of motion shows positive crepitus as well as pain with range of motion. His current range is from 0-90 degrees of flexion. Knee is otherwise stable to medial lateral as well as antral posterior stress.) - Integumentary Skin: Normal, Warm, Dry Lymphatics: Normal (No lymph node swelling or pain.) - Neurologic Memory Impaired: Short-term Motor Function: Abnormal Cranial Nerve: Normal Cerebellar: Ataxia Mood Description: Anxious, Other ( patient shows spontaneous movements of his both lower extremities. There are no upper motor neuron signs.) Thought: Coherent Perception: Normal - Other Exam Other Exam Findings: Allergies cefprozil [From Cefzil] Allergy (Verified 09/08/15 16:51) Nausea/Vomiting Last Vital Signs Temp 98.4 F 02/26/16 12:03 Pulse 75 02/26/16 12:03 Resp 20 02/26/16 12:03 BP 131/61 02/26/16 12:03 Pulse Ox 92 02/26/16 12:03 02/26/16 04:45 02/26/16 04:45 Abnormal Lab Results 02/26/16 02/26/16 04:45 04:45 WBC 20.5 H RBC 3.12 L Hgb 8.8 L D Hct 27.3 L MCHC 32.3 L RDW 16.3 H Seg Neuts % (Manual) 90 H Band Neutrophils % 6 H Lymphocytes % (Manual) 4 L Absolute Neutrophils 19.68 H Chloride 97 L Carbon Dioxide 36 H BUN 78 H Creatinine 1.30 H Estimated GFR (MDRD) 53 L Glucose 246 H Calculated Osmolality 300 H Microbiology 02/20/16 22:42 Knee Fluid - Left Joint Fluid Culture - Final Streptococcus pneumoniae 02/20/16 21:43 Blood Blood Culture - Final Presumptive Strep pneumoniae 02/20/16 22:06 Blood Blood Culture - Final Streptococcus pneumoniae 02/22/16 16:07 Nares MRSA DNA Surveillance Screen - Final NEGATIVE for MRSA DNA 02/22/16 16:07 Nares MSSA Surveillance Screen (PCR) - Final NEGATIVE for Staphylococcus aureus DNA 02/20/16 19:48 Urine - In/Out Catheter Urine Culture - Final No growth <10,00O CFU/ml 02/20/16 22:00 N/P - Naso/Pharyngeal Influenza Type A Antigen Screen - Final NEGATIVE Please note: A NEGATIVE result does not exclude an influenza virus infection. It is a presumptive result and, if required, confirmation should be done using either a virus culture or an FDA-cleared influenza A&B molecular assay. ("NORMAL" value = "NEGATIVE".) 02/20/16 22:00 N/P - Naso/Pharyngeal Influenza Type B Antigen Screen - Final NEGATIVE Please note: A NEGATIVE result does not exclude an influenza virus infection. It is a presumptive result and, if required, confirmation should be done using either a virus culture or an FDA-cleared influenza A&B molecular assay. ("NORMAL" value = "NEGATIVE".) Microbiology 02/20/16 22:42 Knee Fluid - Left Joint Fluid Culture - Final Streptococcus pneumoniae Patient Name: NOBLE MO LOC: [facility] : 1935 AGE: 81 Order Date:02/26/16 Date of Service: Report # [id number] Ord Physician: Mercy Disla MD Exam # [id number] Emergency Physician: Josefina Concepcion MD Exam(s): [id number] RAD/DG CHEST 1V CLINICAL DATA: Evaluate for pleural effusion and pneumonia. Weakness and shortness of breath EXAM: CHEST 1 VIEW COMPARISON: 02/20/2016 FINDINGS: Smaller left pleural effusion, cannot exclude an element of loculation. Stable small right pleural effusion. COPD and coarse and cystic interstitial opacities at the bases. Hyperinflation. No pulmonary edema. Right upper extremity PICC, tip at the SVC level. Stable cardiomegaly and aortic tortuosity. Stable thickening at the right apex. IMPRESSION: 1. Mild decrease in small left pleural effusion. 2. Basilar bronchiectasis and pulmonary fibrosis with background COPD. Superimposed pneumonia at the bases would be obscured. Electronically Signed By: Dev Molina M.D.
--- NOTE | 2016-02-26 14:05 | PCM.ORTHBL ---
- Subjective Post Op Day: 3 Daily Assessment - Patient: Reports: No new complaints, Feels better, Still having pain, Pain is less - Objective / Physical Exam Vital Signs: Temperature: 98.4 F (02/26/16 13:41) HR: 75 (02/26/16 13:41)RR: 20 (02/26/16 13: 41) BP: 131/61 (02/26/16 13:41)Pulse Ox: 92 (02/26/16 12:03) General: Alert, Cooperative, No acute distress Musculoskeletal / Extremities: 2 plus Dorsalis Pedis Pulse, Dressing Clean/Dry/ Intact, Other (L knee: + effusion. NO erythema. No pain w/ axial loading. discomfort w/ gentle ROM.) Neurological: Sensation to light touch intact (DP/SP/T/S/S), Extensor Hallicus Longus Intact, Flexor Hallicus Longus Intact, Dorsiflexion Intact, Plantarflexion Intact Skin: Warm,Dry and Intact, No rashes, No breakdown Procedure Note: Risks, benefits, and alternatives regarding sterile aspiration were discussed and verbal consent from the patient's was obtained. Using sterile technique and 18g needle was used to aspirate the knee joint. 12 cc's of hemarthrosis was aspirated without purulence present. Patient tolerated procedure well. Laboratory/Diagnostics Reviewed: Laboratory Results - last 24 hr 02/26/16 02/26/16 04:45 04:45 WBC 20.5 H RBC 3.12 L Hgb 8.8 L D Hct 27.3 L MCV 88 MCH 28.3 MCHC 32.3 L RDW 16.3 H Plt Count 217 MPV 8.8 Neut % (Auto) Cancelled Lymph % (Auto) Cancelled [place] % (Auto) Cancelled Eos % (Auto) Cancelled Baso % (Auto) Cancelled Absolute Neuts (auto) Cancelled Absolute Lymphs (auto) Cancelled Seg Neuts % (Manual) 90 H Band Neutrophils % 6 H Lymphocytes % (Manual) 4 L Absolute Neutrophils 19.68 H Absolute Lymphocytes 0.82 Vacuolated Neuts 1+ Toxic Granulation 1+ Platelet Estimate Norm RBC Morphology Reviewed this admiss Sodium 140 Potassium 4.7 D Chloride 97 L Carbon Dioxide 36 H Anion Gap 12 BUN 78 H Creatinine 1.30 H Estimated GFR (MDRD) 53 L Glucose 246 H Calculated Osmolality 300 H Calcium 9.2 - Assessment and Plan (1) Septic joint of left knee joint 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 Pt. doing well w/ pain improving. Large effusion. Aspiration performed at bedside in order to improve quad function and ROM. NO evidence of recurrent infection at this time. Continue 6 weeks IV abx. RTC POD #10 for wound check. OOB w/ PT daily for gait training and ROM/Strengthening exercises. ok per ortho for txr to [facility] today.
[2016-02-26] MEDS ORDERED: HEPARIN 500 UNITS/5 ML (100 UNITS/ML) SYR FLUSH ONE (16:00)
[2016-02-26 16:31] VITALS: PULSE 78
== END 2016-02-26 16:35 | DRG 853 ==
LOC: ED 19:16 → PCU 22:12
PROVIDERS: ADMIT Internal Medicine; ATTEND Hospitalist
PROC: 039B3ZZ Drainage of Right Radial Artery, Percutaneous Approach (ICD-10-PCS; 2016-02-20)
PROC: 05HB33Z Insertion of Infusion Device into Right Basilic Vein, Percutaneous Approach (ICD-10-PCS; 2016-02-20)
PROC: B51MZZA Fluoroscopy of Right Upper Extremity Veins, Guidance (ICD-10-PCS; 2016-02-20)
PROC: 0SBD4ZZ Excision of Left Knee Joint, Percutaneous Endoscopic Approach (ICD-10-PCS; 2016-02-23)
PROC: 0S9D4ZZ Drainage of Left Knee Joint, Percutaneous Endoscopic Approach (ICD-10-PCS; principal; 2016-02-23 11:45)
DX: A40.1 Sepsis due to streptococcus, group B (principal); J15.9 Unspecified bacterial pneumonia; G93.41 Metabolic encephalopathy; I50.33 Acute on chronic diastolic (congestive) heart failure; I11.0 Hypertensive heart disease with heart failure; J47.0 Bronchiectasis with acute lower respiratory infection; F03.90 Unspecified dementia, unspecified severity, without behavioral disturbance, psychotic disturbance, mood disturbance, and anxiety; J44.9 Chronic obstructive pulmonary disease, unspecified; M00.262 Other streptococcal arthritis, left knee; R78.81 Bacteremia; D53.9 Nutritional anemia, unspecified; R53.81 Other malaise; R62.7 Adult failure to thrive; M70.42 Prepatellar bursitis, left knee; Z87.891 Personal history of nicotine dependence; M17.12 Unilateral primary osteoarthritis, left knee; R09.02 Hypoxemia; M65.862 Other synovitis and tenosynovitis, left lower leg; Z79.82 Long term (current) use of aspirin; Z79.899 Other long term (current) drug therapy
CPT/HCPCS: 20610; 36415; 36569; 36600; 71010; 76937; 77001; 80048; 80053; 80061; 81001; 82550; 82803; 83605; 83735; 83880; 84443; 84484; 85007; 85027; 85610; 85730; 87040; 87070; 87075; 87077; 87086; 87186; 87641; 87804; 89050; 89051; 89060; 93005; 93306; 94640; 96365; 96366; 96372; 97162; 99284; G0237; J0690; J0696; J1160; J1630; J1642; J1650; J1885; J1940; J1956; J2001; J2060; J2405; J2543; J2550; J2930; J3010; J3301; J3360; J3490; J7060; J7620